=== PATIENT | male | born 1935 | race Caucasian/White ===

== ENCOUNTER 2016-10-06 11:25 | Emergency (ER) | payer OTHER ==
[~2016-10-06] VITALS: Ht 157.5 cm; Wt 77.2 kg
[~2016-10-06 11:25] MED LIST: ADVAIR 250/501 DISK IH; ADVAIR HFA120 INHALA IH; ALBUTEROL SULF8.5 GM IH; ALDACTONE25 MG PO; AMLODIPINE BESY10 MG PO; AMLODIPINE BESYL5 MG PO; ARANESP25 MCG/0.4 SC; ASPIR 8181 M1 PO; ASPIR-TRIN325 M1 PO; Advair HFA 115/21 IH; Aldactone PO; B-121000 MC2 PO; BENZONATATE100 MG PO; CARDIZEM CD,CA240 MG PO; CEFTIN500 MG PO; CEFUROXIME500 MG PO; CENTRUM SILV1 TABLET PO; CENTRUM SILVER1 EAC3 PO; CENTRUM TABLET1 EACH PO; CIPRO500 MG PO; CIPROFLOXACIN500 M1 PO; CLARITIN,ALAVAR10 MG PO; COLACE100 MG PO; CYANOCOBALAM1000 MCG PO; CYCLOBENZAPRINE5 MG PO; DIGOXIN125 MCG PO; DITROPAN XL5 MG PO; DOCUSATE SODIU100 MG PO; DOXYCYCLINE HY100 M3 PO; DUONEB 2.5-0.5 M3 ML AEROSOL; ENABLEX7.5 MG PO; EPOGEN,PRO3000 UNITS SC; FENOFIBRATE145 M1 PO; FISH OIL 1,0001 EAC7 PO; FISH OIL CONC1 EACH PO; FISH OIL300 MG PO; FLOMAX0.4 M1 PO; FUROSEMIDE40 MG PO; GLIMEPIRIDE2 MG PO; HUMALOG MI100 UNIT/5 SC; HUMALOG100 UNIT/1 SC; HYDROCHLOROTHIA25 MG PO; HYDROCODON-ACE1 EAC7 PO; JANUVIA100 MG PO; KETOCONAZOLE120 ML TP; LASIX40 MG PO; LEVAQUIN500 MG PO; LEVAQUIN750 MG PO; LIDOCAINE700 MG TD; LISINOPRIL40 MG PO; LO-DOSE ASPIRIN81 M2 PO; LORATADINE10 M2 PO; LORTAB 5-325 M1 EACH PO; Lasix PO; Lopressor PO; METHYLDOPA500 MG PO; METOPROLOL SUC100 MG PO; METOPROLOL SUCC50 MG PO; MONTELUKAST SOD10 MG PO; NOVOLOG MI100 UNIT/4 SC; NOVOLOG MI100 UNIT/M SC; OXYBUTYNIN CHLO10 MG PO; OXYCONTIN10 MG PO; Omega III EPA + DHA PO; PLAVIX75 MG PO; PREDNISONE10 MG PO; PRINIVIL20 MG PO; PROAIR HFA8.5 GM IH; PROCRIT2000 UNIT1 SC; PROTONIX40 M1 PO; PROTONIX40 MG PO; SILVADENE,SSD,T50 GM TP; SIMVASTATIN10 MG PO; SIMVASTATIN40 M1 PO; SIMVASTATIN40 MG PO; SINGULAIR10 MG PO; SPIRIVA1 INHALATI IH; ST. JOSEPH ASPI81 MG PO; Singulair PO; Starlix PO; TAMSULOSIN HCL0.4 MG PO; THERAGRAN1 TABLET PO; TOPROL XL50 MG PO; TOVIAZ4 MG PO; TRAMADOL HCL50 MG PO; Theragran-M,Centrum, PO; VENTOLIN HFA18 GM IH; VICODIN 5-3001 EACH PO; Vitamin B-12 PO; WELCHOL3.75 GM PO; ZESTRIL,PRINIVI40 MG PO; ZESTRIL40 MG PO; ZETIA10 MG PO; ZOCOR40 MG PO; Zestril,Prinivil PO; Zocor PO
[2016-10-06 12:07] LABS: HEMATOCRIT 30.3 % (38.0-50.0); MCH 29.1 PG (29.0-34.0); MCHC 30.4 G/DL (30.0-36.0); MCV 95.9 FL (86-99); MEAN PLAT.VOLUME 9.9 uM^3 (9.0-12.4); PLATELET COUNT 247 K/uL (156-360); RBC DIS.WIDTH-CV 19.7 % (11.8-14.6); RBC DIS.WIDTH-SD 64.6 % (39-53); RED BLOOD COUNT 3.16 M/uL (4.00-5.50); WHITE BLOOD COUNT 7.8 K/uL (4.1-10.2)
[2016-10-06 12:09] LABS: EOSINOPHIL (%) 0.5 % (0-5); IMMATURE GRANULOCYTE (%) 3.8 % (0.0-0.7); LYMPHOCYTE COUNT 1.2 K/uL (1.0-2.8); MONOCYTE (%) 10.9 % (3-12); MONOCYTE COUNT 0.9 K/uL (0-0.8); NEUTROPHIL (%) 68.9 % (45-76); NEUTROPHIL COUNT 5.4 K/uL (1.8-6.4)
[2016-10-06 12:16] LABS: CHLORIDE 100 mEq/L (99-109); POTASSIUM 4.2 mEq/L (3.7-5.4); SODIUM 137 mEq/L (136-147)
[2016-10-06 12:18] LABS: GLUCOSE 114 mg/dL (70-99)
[2016-10-06 12:19] LABS: ANION GAP 12 MEQ/L (2-14)
[2016-10-06 12:20] LABS: TOTAL BILIRUBIN 0.2 mg/dL (0.0-1.0)
[2016-10-06 12:22] LABS: ALKALINE PHOSPHATASE 41 IU/L (3-129); GFR ESTIMATE (CALCULATED) 10 mL/min/
[2016-10-06 12:23] LABS: UREA NITROGEN (BUN) 33 mg/dL (9-23)
[2016-10-06 12:27] LABS: TROP-I INTERPRETATION NEGATIVE; TROPONIN-I 0.04 ng/mL (0.0-0.30)
[2016-10-06 13:00] LABS: HEMATOLOGY COMMENT 1 SMEAR COMPATIBLE; USER ID CL
[2016-10-06 16:04] VITALS: BP 127/61
== END 2016-10-06 16:07 | disposition home or self-care (01) ==
LOC: EME → EDBD 11:25 → EME 16:07
PROVIDERS: Emergency Medicine
DX: L89.309 Pressure ulcer of unspecified buttock, unspecified stage (principal); R19.7 Diarrhea, unspecified; I12.0 Hypertensive chronic kidney disease with stage 5 chronic kidney disease or end stage renal disease; N18.6 End stage renal disease; E11.9 Type 2 diabetes mellitus without complications; J44.9 Chronic obstructive pulmonary disease, unspecified; E78.5 Hyperlipidemia, unspecified; Z85.51 Personal history of malignant neoplasm of bladder; Z79.4 Long term (current) use of insulin; Z87.891 Personal history of nicotine dependence; Z95.1 Presence of aortocoronary bypass graft; Z99.2 Dependence on renal dialysis
CPT/HCPCS: 71020; 80053; 81003; 84484; 85025; 87493; 87506; 93005; 99281; 99285

== ENCOUNTER 2016-10-17 12:13 | Day surgery (SDC) | payer OTHER ==
[~2016-10-17] VITALS: Ht 157.5 cm; Wt 77.6 kg
[~2016-10-17 12:13] MED LIST changes: +BENADRYL25 MG PO; +DILTIAZEM 24HR360 M1 PO
[2016-10-17 13:03] VITALS: BP 129/60
[2016-10-17 13:18] LABS: HEMATOCRIT 33.5 % (38.0-50.0); MCH 30.7 PG (29.0-34.0); MCV 98.8 FL (86-99); MEAN PLAT.VOLUME 10.5 uM^3 (9.0-12.4); PLATELET COUNT 173 K/uL (156-360); RBC DIS.WIDTH-CV 21.6 % (11.8-14.6); RBC DIS.WIDTH-SD 74.5 % (39-53); RED BLOOD COUNT 3.39 M/uL (4.00-5.50); WHITE BLOOD COUNT 8.2 K/uL (4.1-10.2)
[2016-10-17 13:41] LABS: POINT-OF-CARE METER ID UU14174212
[2016-10-17 13:46] LABS: ANION GAP 8 MEQ/L (2-14); CHLORIDE 106 MEQ/L (99-109); POTASSIUM 5.2 MEQ/L (3.7-5.4); SAMPLE HEMOLYSIS CHECK 0; SAMPLE ICTERIC CHECK 0; SAMPLE LIPEMIA CHECK 0; SODIUM 139 MEQ/L (136-147)
[2016-10-17 13:51] LABS: GFR ESTIMATE (CALCULATED) 10 mL/min/; GLUCOSE 47 mg/dL (70-99); UREA NITROGEN (BUN) 48 mg/dL (9-23)
[2016-10-17 14:11] LABS: METH RESISTANT S AUREUS PCR NEGATIVE (NEGATIVE)
[2016-10-17 14:27] LABS: PROBE CHECK PASS; SPECIMEN PROCESSING CONTROL PASS
[2016-10-17 15:33] LABS: POINT-OF-CARE METER ID UU14174212
[2016-10-17 16:17] LABS: POINT-OF-CARE METER ID UU14174212
[2016-10-17 17:48] LABS: POINT-OF-CARE METER ID UU13113675
[2016-10-17 18:20] VITALS: BP 121/59
[2016-10-17 19:10] VITALS: BP 126/59
[2016-10-17 19:33] LABS: POINT-OF-CARE METER ID UU14174212; POINT-OF-CARE USER ID AHSRSCSLC11
[2016-10-20 11:50] LABS: POINT-OF-CARE METER ID UU14174212
== END 2016-10-17 19:30 | disposition home or self-care (01) ==
LOC: SDC 12:13
PROVIDERS: Surgery
PROC: 03170ZD Bypass Right Brachial Artery to Upper Arm Vein, Open Approach (ICD-10-PCS; principal; 2016-10-17)
DX: I12.0 Hypertensive chronic kidney disease with stage 5 chronic kidney disease or end stage renal disease (principal); E11.22 Type 2 diabetes mellitus with diabetic chronic kidney disease; N18.6 End stage renal disease; J44.9 Chronic obstructive pulmonary disease, unspecified; Z99.81 Dependence on supplemental oxygen; Z87.891 Personal history of nicotine dependence
CPT/HCPCS: 80048; 82948; 85027; 87641; J0690; J1644; J2720

== ENCOUNTER 2016-11-09 13:11 | Inpatient (IN) | payer OTHER ==
[~2016-11-09] VITALS: Ht 160 cm; Wt 81.8 kg
[2016-11-09 14:18] LABS: EOSINOPHIL COUNT 0.1 K/uL (0-0.3); HEMATOCRIT 34.5 % (38.0-50.0); IMMATURE GRANULOCYTE (%) 0.7 % (0.0-0.7); IMMATURE GRANULOCYTE COUNT 0.1 K/uL; INSTRUMENT ABS NEUTROPHIL CT 5.4 K/uL; LYMPHOCYTE COUNT 1.1 K/uL (1.0-2.8); MCH 30.1 PG (29.0-34.0); MCHC 30.1 G/DL (30.0-36.0); MEAN PLAT.VOLUME 10.7 uM^3 (9.0-12.4); MONOCYTE (%) 13.6 % (3-12); NEUTROPHIL (%) 70.1 % (45-76); NEUTROPHIL COUNT 5.4 K/uL (1.8-6.4); PLATELET COUNT 168 K/uL (156-360); RBC DIS.WIDTH-CV 19.5 % (11.8-14.6); RBC DIS.WIDTH-SD 70.8 % (39-53); RED BLOOD COUNT 3.45 M/uL (4.00-5.50); WHITE BLOOD COUNT 7.7 K/uL (4.1-10.2)
[2016-11-09 14:35] LABS: INTER. NORMALIZED RATIO 1.1; PROTHROMBIN TIME 11.6 (9.2-11.2)
[2016-11-09 14:36] LABS: CHLORIDE 101 mEq/L (99-109); SODIUM 136 mEq/L (136-147)
[2016-11-09 14:38] LABS: GLUCOSE 64 mg/dL (70-99)
[2016-11-09 14:39] LABS: ANION GAP 9 MEQ/L (2-14)
[2016-11-09 14:42] LABS: GFR ESTIMATE (CALCULATED) 10 mL/min/
[2016-11-09 14:43] LABS: UREA NITROGEN (BUN) 82 mg/dL (9-23)
[2016-11-09 14:45] LABS: TROP-I INTERPRETATION NEGATIVE; TROPONIN-I 0.02 ng/mL (0.0-0.30)
[2016-11-09 14:50] LABS: DIGOXIN < 0.3 ng/mL (0.8-2.0)
[2016-11-09 14:57] LABS: SAMPLE HEMOLYSIS CHECK 0; SAMPLE ICTERIC CHECK 0; SAMPLE LIPEMIA CHECK 0
[2016-11-09 15:03] LABS: HDL CHOLESTEROL 34 MG/DL (Desirable>=40); LDL CHOLESTEROL 36 mg/dL (Desirable<100); NON-HDL CHOLESTEROL 54 mg/dL (Desirable<160); TOTAL CHOLESTEROL 88 mg/dL (Desirable<200); TRIGLYCERIDES 89 MG/DL (Normal: <150)
[2016-11-09] MEDS ORDERED: [UNRECOGNIZED DRUG - OTHER] PO (15:48)
[2016-11-09] MEDS ORDERED: METHYLDOPA250 MG PO (15:48)
[2016-11-09] MEDS ORDERED: CALCIUM ACETAT667 MG PO (15:48)
[2016-11-09] MEDS ORDERED: ZYRTEC10 M3 PO (15:49)
[2016-11-09] MEDS ORDERED: BACLOFEN10 MG PO (15:49)
[2016-11-09 16:37] LABS: CHLORIDE 103 mEq/L (99-109); POTASSIUM 5.7 mEq/L (3.7-5.4); SODIUM 134 mEq/L (136-147)
[2016-11-09 16:39] LABS: GLUCOSE 63 mg/dL (70-99)
[2016-11-09 16:40] LABS: ANION GAP 13 MEQ/L (2-14)
[2016-11-09 16:43] LABS: GFR ESTIMATE (CALCULATED) 10 mL/min/
[2016-11-09 16:44] LABS: UREA NITROGEN (BUN) 82 mg/dL (9-23)
[2016-11-09 18:39] LABS: POINT-OF-CARE METER ID UU14188625
[2016-11-09 19:44] VITALS: BP 103/51
[2016-11-09 20:18] LABS: BASE EXCESS -0.9 mEq/L (-3 to +3); BICARBONATE 27.4 mEq/L (22-26); CARBOXY HGB 2.5 % (0-5); METHEMOGLOBIN 1.4 % (0-1.5)
[2016-11-09 20:19] LABS: COMMENTS - BLOOD GASES A+C+; DEVICE NC; O2 FLOW 2 L/MIN; PCO2 64 mm Hg (35-45); PO2 62 mm Hg (80-100); SITE LR; pH 7.24 (7.35-7.45)
[2016-11-09 20:25] LABS: ANION GAP 10 MEQ/L (2-14); CHLORIDE 99 MEQ/L (99-109); GFR ESTIMATE (CALCULATED) 10 mL/min/; GLUCOSE 119 mg/dL (70-99); POTASSIUM 5.5 MEQ/L (3.7-5.4); SAMPLE HEMOLYSIS CHECK 0; SAMPLE ICTERIC CHECK 0; SAMPLE LIPEMIA CHECK 0; SODIUM 136 MEQ/L (136-147); UREA NITROGEN (BUN) 82 mg/dL (9-23)
[2016-11-09 23:27] VITALS: BP 100/50
[2016-11-10 04:44] VITALS: BP 112/54
[2016-11-10 06:44] LABS: Estimated Average Glucose 94 mg/dL (70-123)
[2016-11-10 07:05] LABS: HEMOGLOBIN A1c (GLYCOHEMOGLOB) 4.9 % HGB (Below 5.7)
[2016-11-10 07:31] LABS: HEMATOCRIT 35.4 % (38.0-50.0); MCH 30.2 PG (29.0-34.0); MCHC 29.9 G/DL (30.0-36.0); MCV 100.9 FL (86-99); MEAN PLAT.VOLUME 10.9 uM^3 (9.0-12.4); PLATELET COUNT 182 K/uL (156-360); RBC DIS.WIDTH-CV 19.6 % (11.8-14.6); RBC DIS.WIDTH-SD 71.5 % (39-53); RED BLOOD COUNT 3.51 M/uL (4.00-5.50)
[2016-11-10 07:43] LABS: ANION GAP 14 MEQ/L (2-14); CHLORIDE 98 MEQ/L (99-109); GFR ESTIMATE (CALCULATED) 9 mL/min/; POTASSIUM 5.5 MEQ/L (3.7-5.4); SAMPLE HEMOLYSIS CHECK 0; SAMPLE ICTERIC CHECK 0; SAMPLE LIPEMIA CHECK 0; SODIUM 137 MEQ/L (136-147); UREA NITROGEN (BUN) 88 mg/dL (9-23)
[2016-11-10 07:49] VITALS: BP 116/64
[2016-11-10 08:05] LABS: GLUCOSE 236 mg/dL (70-99)
[2016-11-10 12:02] VITALS: BP 134/70
[2016-11-10 18:30] VITALS: BP 154/78
[2016-11-10 19:34] LABS: POINT-OF-CARE USER ID AHSUCEG
[2016-11-11 00:15] VITALS: BP 134/64
[2016-11-11 03:36] VITALS: BP 125/72
[2016-11-11 08:00] VITALS: BP 137/69
[2016-11-11 08:16] LABS: VANCOMYCIN, TROUGH 17.2 MCG/ML (10-20)
[2016-11-11 09:28] LABS: HEMATOCRIT 32.9 % (38.0-50.0); MCH 30.6 PG (29.0-34.0); MCHC 30.7 G/DL (30.0-36.0); MCV 99.7 FL (86-99); MEAN PLAT.VOLUME 11.2 uM^3 (9.0-12.4); NRBC (%) 1.2 /100 WBC (0-0); PLATELET COUNT 213 K/uL (156-360); RBC DIS.WIDTH-CV 20.3 % (11.8-14.6); RBC DIS.WIDTH-SD 72.9 % (39-53)
[2016-11-11 09:30] LABS: WHITE BLOOD COUNT 5.7 K/uL (4.1-10.2)
[2016-11-11 09:35] LABS: ANION GAP 15 MEQ/L (2-14); CHLORIDE 94 MEQ/L (99-109); GLUCOSE 253 mg/dL (70-99); SODIUM 136 MEQ/L (136-147); UREA NITROGEN (BUN) 50 mg/dL (9-23)
[2016-11-11 09:39] LABS: GFR ESTIMATE (CALCULATED) 14 mL/min/; POTASSIUM 4.2 MEQ/L (3.7-5.4)
[2016-11-11 12:00] VITALS: BP 132/70
[2016-11-11 15:17] VITALS: BP 132/78
[2016-11-11 20:14] VITALS: BP 147/70
[2016-11-11 23:04] LABS: POINT-OF-CARE METER ID UU14188625
[2016-11-12 00:09] VITALS: BP 135/70
[2016-11-12 04:37] VITALS: BP 127/67
[2016-11-12 07:45] VITALS: BP 134/76
[2016-11-12 07:53] LABS: POINT-OF-CARE METER ID UU14188625
[2016-11-12 10:13] LABS: HEMATOCRIT 36.1 % (38.0-50.0); MCH 29.8 PG (29.0-34.0); MCHC 29.9 G/DL (30.0-36.0); MCV 99.4 FL (86-99); MEAN PLAT.VOLUME 11.2 uM^3 (9.0-12.4); NRBC (%) 1.2 /100 WBC (0-0); PLATELET COUNT 237 K/uL (156-360); RBC DIS.WIDTH-CV 20.4 % (11.8-14.6); RED BLOOD COUNT 3.63 M/uL (4.00-5.50)
[2016-11-12 10:14] LABS: WHITE BLOOD COUNT 11.1 K/uL (4.1-10.2)
[2016-11-12 10:18] LABS: ANION GAP 14 MEQ/L (2-14); CHLORIDE 97 MEQ/L (99-109); GFR ESTIMATE (CALCULATED) 10 mL/min/; GLUCOSE 235 mg/dL (70-99); POTASSIUM 3.8 MEQ/L (3.7-5.4); SAMPLE HEMOLYSIS CHECK 0; SAMPLE ICTERIC CHECK 0; SAMPLE LIPEMIA CHECK 0; SODIUM 140 MEQ/L (136-147); UREA NITROGEN (BUN) 75 mg/dL (9-23)
[2016-11-12 10:21] LABS: EOSINOPHIL (%) 0.1 % (0-5); IMMATURE GRANULOCYTE (%) 1.1 % (0.0-0.7); IMMATURE GRANULOCYTE COUNT 0.1 K/uL; INSTRUMENT ABS NEUTROPHIL CT 8.4 K/uL; LYMPHOCYTE COUNT 1.4 K/uL (1.0-2.8); MONOCYTE (%) 10.8 % (3-12); MONOCYTE COUNT 1.2 K/uL (0-0.8); NEUTROPHIL (%) 75.3 % (45-76); NEUTROPHIL COUNT 8.4 K/uL (1.8-6.4)
[2016-11-12 13:18] LABS: POINT-OF-CARE METER ID UU14188625
[2016-11-12 15:50] VITALS: BP 111/55
[2016-11-12 16:40] LABS: POINT-OF-CARE METER ID UU14188625
[2016-11-12 20:02] VITALS: BP 122/63
[2016-11-12 23:42] VITALS: BP 127/65
[2016-11-13 03:33] VITALS: BP 116/65
[2016-11-13 08:17] VITALS: BP 116/67
[2016-11-13 11:05] VITALS: BP 135/80
[2016-11-13 11:13] VITALS: BP 128/65
[2016-11-13] MEDS ORDERED: LIDOCAINE700 MG TD (14:32)
[2016-11-13] MEDS ORDERED: NOVOLOG PE100 UNITS/ SC (14:49)
[2016-11-13 15:22] VITALS: BP 126/66
[2016-11-13] MEDS ORDERED: TOPROL XL25 MG PO (15:37)
[2016-11-14 08:29] LABS: POINT-OF-CARE METER ID UU14188625
== END 2016-11-13 17:00 | DRG 682 ==
LOC: EME 13:11 → 5SOUTH 15:32 → EDOF 15:32 → 5SOUTH 16:53
PROVIDERS: Emergency Medicine; Hospitalist; Internal Medicine; Internal Medicine Nephrology; Internal Medicine Pulmonary Disease; Nurse Practitioner Adult Health
PROC: 5A1D60Z (ICD-10-PCS; principal; 2016-11-10)
DX: N18.6 End stage renal disease (principal); E87.5 Hyperkalemia; I13.2 Hypertensive heart and chronic kidney disease with heart failure and with stage 5 chronic kidney disease, or end stage renal disease; I50.30 Unspecified diastolic (congestive) heart failure; E11.22 Type 2 diabetes mellitus with diabetic chronic kidney disease; Z99.2 Dependence on renal dialysis; G93.49 Other encephalopathy; J96.11 Chronic respiratory failure with hypoxia; J44.9 Chronic obstructive pulmonary disease, unspecified; E87.2 Acidosis; I95.2 Hypotension due to drugs; T46.5X5A Adverse effect of other antihypertensive drugs, initial encounter; C67.9 Malignant neoplasm of bladder, unspecified; I45.2 Bifascicular block; I48.92 Unspecified atrial flutter; I48.91 Unspecified atrial fibrillation; E11.649 Type 2 diabetes mellitus with hypoglycemia without coma; Z99.81 Dependence on supplemental oxygen; I25.10 Atherosclerotic heart disease of native coronary artery without angina pectoris; Z95.1 Presence of aortocoronary bypass graft; R29.6 Repeated falls; E78.5 Hyperlipidemia, unspecified; E66.9 Obesity, unspecified; Z68.31 Body mass index [BMI] 31.0-31.9, adult; N47.1 Phimosis; M17.12 Unilateral primary osteoarthritis, left knee; M85.862 Other specified disorders of bone density and structure, left lower leg; Z79.4 Long term (current) use of insulin; Z87.891 Personal history of nicotine dependence; Z98.890 Other specified postprocedural states
CPT/HCPCS: 36600; 70450; 71020; 73560; 74176; 80048; 80048 91; 80061; 80069; 80162; 80202; 81003; 82803; 82948; 83036; 84484; 84550; 85025; 85027; 85610; 85730; 87040; 93005; 94010; 94640; 94640 76; 94760; 94799; 97530 GO; 99202; 99281; 99285; J1644; J1815; J1940; J2543; J2920; J3370; J7050; P9047

== ENCOUNTER 2016-12-19 20:13 | Inpatient (IN) | payer OTHER ==
[~2016-12-19] VITALS: Ht 157.5 cm; Wt 63.2 kg
[~2016-12-19 20:13] MED LIST changes: +BACLOFEN10 MG PO; +CALCIUM ACETAT667 MG PO; +METHYLDOPA250 MG PO; +NOVOLOG PE100 UNITS/ SC; +TOPROL XL25 MG PO; +ZYRTEC10 M3 PO; +[UNRECOGNIZED DRUG - OTHER] PO
[2016-12-19 21:51] LABS: HEMATOCRIT 34.8 % (38.0-50.0); MCH 30.3 PG (29.0-34.0); MCHC 30.7 G/DL (30.0-36.0); MEAN PLAT.VOLUME 10.8 uM^3 (9.0-12.4); RBC DIS.WIDTH-CV 18.6 % (11.8-14.6); RBC DIS.WIDTH-SD 67.8 % (39-53); RED BLOOD COUNT 3.53 M/uL (4.00-5.50); WHITE BLOOD COUNT 7.6 K/uL (4.1-10.2)
[2016-12-19 21:54] LABS: MCV 98.6 FL (86-99); PLATELET COUNT 119 K/uL (156-360)
[2016-12-19 22:01] LABS: CHLORIDE 99 mEq/L (99-109); POTASSIUM 4.5 mEq/L (3.7-5.4); SODIUM 136 mEq/L (136-147)
[2016-12-19 22:03] LABS: GLUCOSE 139 mg/dL (70-99)
[2016-12-19 22:04] LABS: ANION GAP 8 MEQ/L (2-14)
[2016-12-19 22:05] LABS: TOTAL BILIRUBIN 0.3 mg/dL (0.0-1.0)
[2016-12-19 22:07] LABS: ALKALINE PHOSPHATASE 51 IU/L (3-129); GFR ESTIMATE (CALCULATED) 25 mL/min/
[2016-12-19 22:08] LABS: UREA NITROGEN (BUN) 24 mg/dL (9-23)
[2016-12-19 22:15] LABS: TROP-I INTERPRETATION NEGATIVE; TROPONIN-I 0.03 ng/mL (0.0-0.30)
[2016-12-20] VITALS (30 sets, daily range): BP systolic 87–127; BP diastolic 39–68
[2016-12-20 04:51] LABS: EOSINOPHIL (%) 0.1 % (0-5); HEMATOCRIT 38.1 % (38.0-50.0); IMMATURE GRANULOCYTE (%) 0.7 % (0.0-0.7); IMMATURE GRANULOCYTE COUNT 0.1 K/uL; INSTRUMENT ABS NEUTROPHIL CT 6.4 K/uL; LYMPHOCYTE COUNT 0.5 K/uL (1.0-2.8); MCH 29.7 PG (29.0-34.0); MCHC 29.7 G/DL (30.0-36.0); MEAN PLAT.VOLUME 10.8 uM^3 (9.0-12.4); MONOCYTE (%) 2.1 % (3-12); MONOCYTE COUNT 0.2 K/uL (0-0.8); NEUTROPHIL (%) 89.7 % (45-76); NEUTROPHIL COUNT 6.4 K/uL (1.8-6.4); PLATELET COUNT 129 K/uL (156-360); RBC DIS.WIDTH-CV 18.8 % (11.8-14.6); RBC DIS.WIDTH-SD 70.3 % (39-53); RED BLOOD COUNT 3.81 M/uL (4.00-5.50); WHITE BLOOD COUNT 7.1 K/uL (4.1-10.2)
[2016-12-20 05:01] LABS: CHLORIDE 100 mEq/L (99-109); SODIUM 138 mEq/L (136-147)
[2016-12-20 05:03] LABS: GLUCOSE 138 mg/dL (70-99)
[2016-12-20 05:04] LABS: ANION GAP 10 MEQ/L (2-14)
[2016-12-20 05:05] LABS: TOTAL BILIRUBIN 0.3 mg/dL (0.0-1.0)
[2016-12-20 05:06] LABS: ALKALINE PHOSPHATASE 45 IU/L (3-129)
[2016-12-20 05:07] LABS: GFR ESTIMATE (CALCULATED) 21 mL/min/
[2016-12-20 05:08] LABS: UREA NITROGEN (BUN) 29 mg/dL (9-23)
[2016-12-20 05:10] LABS: TROP-I INTERPRETATION NEGATIVE; TROPONIN-I 0.03 ng/mL (0.0-0.30)
[2016-12-20 05:41] LABS: POINT-OF-CARE METER ID UU13113781
[2016-12-20 07:47] LABS: BICARBONATE 31.7 mEq/L (22-26); CARBOXY HGB 2.1 % (0-5); METHEMOGLOBIN 1.8 % (0-1.5)
[2016-12-20 07:48] LABS: PCO2 87 mm Hg (35-45); PO2 79 mm Hg (80-100); pH 7.17 (7.35-7.45)
[2016-12-20 07:49] LABS: DEVICE NC; O2 FLOW 2 L/MIN; SITE LR
[2016-12-20 07:50] LABS: COMMENTS - BLOOD GASES A+C+; TOTAL RESP RATE 17 resp/min
[2016-12-20 09:42] LABS: METH RESISTANT S AUREUS PCR NEGATIVE (NEGATIVE); PROBE CHECK PASS; SPECIMEN PROCESSING CONTROL PASS
[2016-12-20 10:18] LABS: BASE EXCESS 2.8 mEq/L (-3 to +3); BICARBONATE 27.9 mEq/L (22-26); CARBOXY HGB 1.7 % (0-5); METHEMOGLOBIN 1.2 % (0-1.5); PO2 67 mm Hg (80-100)
[2016-12-20 10:20] LABS: COMMENTS - BLOOD GASES NAC+; DEVICE 980 VENT; FI02 30 %; MECHANICAL RATE 25 resp/min; MODE A/C; PCO2 44 mm Hg (35-45); SITE RR; TOTAL RESP RATE 25 resp/min; pH 7.41 (7.35-7.45)
[2016-12-20 10:21] LABS: PEEP 5 CM/H20; TIDAL VOLUME 400 ML
[2016-12-21] VITALS (24 sets, daily range): BP systolic 93–126; BP diastolic 43–68
[2016-12-21] MEDS ORDERED: METOPROLOL SUCC50 MG PO (21:00)
[2016-12-21] MEDS ORDERED: METHYLDOPA250 MG PO (21:00)
[2016-12-21] MEDS ORDERED: RENA-VITE RX T1 EACH PO (21:03)
[2016-12-21] MEDS ORDERED: METOPROLOL TART50 MG PO (21:03)
[2016-12-21] MEDS ORDERED: CIPRO500 MG PO (21:04)
[2016-12-21] MEDS ORDERED: VITAMIN D2000 UNI1 PO (21:04)
[2016-12-21] MEDS ORDERED: HUMALOG100 UNIT/2 SC ×2 (21:08→21:09)
[2016-12-21] MEDS ORDERED: CYCLOBENZAPRINE10 MG PO (21:08)
[2016-12-21] MEDS ORDERED: DUONEB 2.5-0.5 M3 ML AEROSOL (21:09)
[2016-12-22] VITALS (24 sets, daily range): BP systolic 96–135; BP diastolic 53–80
[2016-12-22 06:27] LABS: ANION GAP 11 MEQ/L (2-14); CHLORIDE 99 MEQ/L (99-109); GLUCOSE 194 mg/dL (70-99); POTASSIUM 5.4 MEQ/L (3.7-5.4); SAMPLE HEMOLYSIS CHECK 0; SAMPLE ICTERIC CHECK 0; SAMPLE LIPEMIA CHECK 0; SODIUM 133 MEQ/L (136-147)
[2016-12-22 06:27] LABS: EOSINOPHIL (%) 0 % (0-5); HEMATOCRIT 35.7 % (38.0-50.0); IMMATURE GRANULOCYTE (%) 1.3 % (0.0-0.7); IMMATURE GRANULOCYTE COUNT 0.1 K/uL; LYMPHOCYTE COUNT 0.6 K/uL (1.0-2.8); MCH 29.7 PG (29.0-34.0); MCHC 30.8 G/DL (30.0-36.0); MCV 96.5 FL (86-99); MEAN PLAT.VOLUME 11.4 uM^3 (9.0-12.4); MONOCYTE (%) 6.6 % (3-12); MONOCYTE COUNT 0.4 K/uL (0-0.8); NEUTROPHIL (%) 82.5 % (45-76); NRBC (%) 0.3 /100 WBC (0-0); PLATELET COUNT 152 K/uL (156-360); RBC DIS.WIDTH-CV 18.9 % (11.8-14.6); RBC DIS.WIDTH-SD 66.9 % (39-53)
[2016-12-22 06:56] LABS: GFR ESTIMATE (CALCULATED) 12 mL/min/
[2016-12-22 06:58] LABS: UREA NITROGEN (BUN) 79 mg/dL (9-23)
[2016-12-22 12:35] LABS: POINT-OF-CARE METER ID UU13113731
[2016-12-22 13:02] LABS: HBSG INDEX 0.23
[2016-12-22 17:28] LABS: POINT-OF-CARE METER ID UU13113731
[2016-12-23] VITALS (12 sets, daily range): BP systolic 103–121; BP diastolic 52–70
[2016-12-23 06:01] LABS: POINT-OF-CARE METER ID UU14174217
[2016-12-23 06:19] LABS: EOSINOPHIL (%) 0 % (0-5); HEMATOCRIT 36.9 % (38.0-50.0); IMMATURE GRANULOCYTE (%) 1.7 % (0.0-0.7); IMMATURE GRANULOCYTE COUNT 0.1 K/uL; INSTRUMENT ABS NEUTROPHIL CT 4.1 K/uL; LYMPHOCYTE COUNT 0.5 K/uL (1.0-2.8); MCH 29.8 PG (29.0-34.0); MCHC 30.9 G/DL (30.0-36.0); MCV 96.3 FL (86-99); MEAN PLAT.VOLUME 11.2 uM^3 (9.0-12.4); MONOCYTE (%) 10.3 % (3-12); MONOCYTE COUNT 0.6 K/uL (0-0.8); NEUTROPHIL (%) 77.8 % (45-76); NEUTROPHIL COUNT 4.1 K/uL (1.8-6.4); NRBC (%) 1.5 /100 WBC (0-0); PLATELET COUNT 170 K/uL (156-360); RBC DIS.WIDTH-SD 66.1 % (39-53); RED BLOOD COUNT 3.83 M/uL (4.00-5.50); WHITE BLOOD COUNT 5.3 K/uL (4.1-10.2)
[2016-12-23 06:40] LABS: ANION GAP 9 MEQ/L (2-14); CHLORIDE 97 MEQ/L (99-109); GFR ESTIMATE (CALCULATED) 18 mL/min/; GLUCOSE 182 mg/dL (70-99); POTASSIUM 4.8 MEQ/L (3.7-5.4); SAMPLE HEMOLYSIS CHECK 0; SAMPLE ICTERIC CHECK 0; SAMPLE LIPEMIA CHECK 0; SODIUM 136 MEQ/L (136-147); UREA NITROGEN (BUN) 48 mg/dL (9-23)
[2016-12-23 12:43] LABS: POINT-OF-CARE METER ID UU14174217
[2016-12-23 18:10] LABS: POINT-OF-CARE METER ID UU14174217
[2016-12-23 23:08] LABS: POINT-OF-CARE METER ID UU13113731
[2016-12-24] VITALS (7 sets, daily range): BP systolic 105–120; BP diastolic 58–66
[2016-12-24 06:50] LABS: EOSINOPHIL (%) 0 % (0-5); HEMATOCRIT 38.5 % (38.0-50.0); IMMATURE GRANULOCYTE (%) 2.6 % (0.0-0.7); IMMATURE GRANULOCYTE COUNT 0.1 K/uL; INSTRUMENT ABS NEUTROPHIL CT 3.4 K/uL; LYMPHOCYTE COUNT 0.5 K/uL (1.0-2.8); MCH 29.7 PG (29.0-34.0); MCHC 30.4 G/DL (30.0-36.0); MCV 97.7 FL (86-99); MEAN PLAT.VOLUME 10.3 uM^3 (9.0-12.4); MONOCYTE (%) 11.5 % (3-12); MONOCYTE COUNT 0.5 K/uL (0-0.8); NEUTROPHIL COUNT 3.4 K/uL (1.8-6.4); NRBC (%) 4.1 /100 WBC (0-0); PLATELET COUNT 167 K/uL (156-360); RBC DIS.WIDTH-CV 19.7 % (11.8-14.6); RBC DIS.WIDTH-SD 67.1 % (39-53); RED BLOOD COUNT 3.94 M/uL (4.00-5.50); WHITE BLOOD COUNT 4.6 K/uL (4.1-10.2)
[2016-12-24 07:21] LABS: ANION GAP 10 MEQ/L (2-14); CHLORIDE 97 MEQ/L (99-109); GFR ESTIMATE (CALCULATED) 14 mL/min/; GLUCOSE 246 mg/dL (70-99); POTASSIUM 5.4 MEQ/L (3.7-5.4); SAMPLE HEMOLYSIS CHECK 0; SAMPLE ICTERIC CHECK 0; SAMPLE LIPEMIA CHECK 0; SODIUM 135 MEQ/L (136-147); UREA NITROGEN (BUN) 72 mg/dL (9-23)
[2016-12-24 13:32] LABS: POINT-OF-CARE METER ID UU13113731
[2016-12-24 18:25] LABS: POINT-OF-CARE METER ID UU14174217
[2016-12-24 22:59] LABS: POINT-OF-CARE METER ID UU14174217
[2016-12-25] VITALS: BP 113/60
[2016-12-25 04:00] VITALS: BP 108/61
[2016-12-25 06:15] LABS: ANION GAP 9 MEQ/L (2-14); CHLORIDE 100 MEQ/L (99-109); GFR ESTIMATE (CALCULATED) 20 mL/min/; GLUCOSE 181 mg/dL (70-99); POTASSIUM 5.4 MEQ/L (3.7-5.4); SAMPLE HEMOLYSIS CHECK 0; SAMPLE ICTERIC CHECK 0; SAMPLE LIPEMIA CHECK 0; SODIUM 134 MEQ/L (136-147); UREA NITROGEN (BUN) 53 mg/dL (9-23)
[2016-12-25 06:25] LABS: EOSINOPHIL (%) 0 % (0-5); HEMATOCRIT 40.3 % (38.0-50.0); IMMATURE GRANULOCYTE (%) 2.7 % (0.0-0.7); IMMATURE GRANULOCYTE COUNT 0.2 K/uL; LYMPHOCYTE COUNT 0.7 K/uL (1.0-2.8); MCH 29.7 PG (29.0-34.0); MCHC 30.8 G/DL (30.0-36.0); MCV 96.4 FL (86-99); MONOCYTE (%) 10.4 % (3-12); MONOCYTE COUNT 0.7 K/uL (0-0.8); NRBC (%) 4.7 /100 WBC (0-0); PLATELET COUNT 178 K/uL (156-360); RBC DIS.WIDTH-CV 19.8 % (11.8-14.6); RBC DIS.WIDTH-SD 65.6 % (39-53); RED BLOOD COUNT 4.18 M/uL (4.00-5.50)
[2016-12-25 06:29] LABS: WHITE BLOOD COUNT 6.6 K/uL (4.1-10.2)
[2016-12-25 08:00] VITALS: BP 105/62
[2016-12-25 12:00] VITALS: BP 118/66
[2016-12-25 12:29] LABS: POINT-OF-CARE METER ID UU14174217; POINT-OF-CARE USER ID 606021424
[2016-12-25 16:00] VITALS: BP 105/56
[2016-12-25 18:16] LABS: POINT-OF-CARE METER ID UU14174217
[2016-12-25 20:00] VITALS: BP 116/61
[2016-12-25 22:25] LABS: POINT-OF-CARE METER ID UU13113731
[2016-12-26] VITALS: BP 117/66
[2016-12-26 04:00] VITALS: BP 124/67
[2016-12-26 06:28] LABS: EOSINOPHIL (%) 0 % (0-5); HEMATOCRIT 41.6 % (38.0-50.0); IMMATURE GRANULOCYTE (%) 2.1 % (0.0-0.7); IMMATURE GRANULOCYTE COUNT 0.2 K/uL; INSTRUMENT ABS NEUTROPHIL CT 9.6 K/uL; LYMPHOCYTE COUNT 0.7 K/uL (1.0-2.8); MCH 29.8 PG (29.0-34.0); MCHC 30.8 G/DL (30.0-36.0); MCV 96.7 FL (86-99); MEAN PLAT.VOLUME 9.8 uM^3 (9.0-12.4); MONOCYTE (%) 7.5 % (3-12); MONOCYTE COUNT 0.9 K/uL (0-0.8); NEUTROPHIL (%) 84.3 % (45-76); NEUTROPHIL COUNT 9.6 K/uL (1.8-6.4); NRBC (%) 1.8 /100 WBC (0-0); PLATELET COUNT 183 K/uL (156-360); RBC DIS.WIDTH-CV 20.4 % (11.8-14.6); RBC DIS.WIDTH-SD 67.7 % (39-53)
[2016-12-26 06:30] LABS: WHITE BLOOD COUNT 11.4 K/uL (4.1-10.2)
[2016-12-26 06:52] LABS: ANION GAP 11 MEQ/L (2-14); CHLORIDE 99 MEQ/L (99-109); GFR ESTIMATE (CALCULATED) 16 mL/min/; GLUCOSE 149 mg/dL (70-99); SAMPLE HEMOLYSIS CHECK 0; SAMPLE ICTERIC CHECK 0; SAMPLE LIPEMIA CHECK 0; SODIUM 134 MEQ/L (136-147)
[2016-12-26 06:53] LABS: UREA NITROGEN (BUN) 81 mg/dL (9-23)
[2016-12-26 13:45] VITALS: BP 127/72
[2016-12-26 14:28] LABS: POINT-OF-CARE METER ID UU13113731
[2016-12-26 16:00] VITALS: BP 108/65
[2016-12-26 17:20] LABS: POINT-OF-CARE METER ID UU13113731
[2016-12-26 20:00] VITALS: BP 109/57
[2016-12-26 23:06] LABS: POINT-OF-CARE METER ID UU13113731
[2016-12-27] VITALS (7 sets, daily range): BP systolic 90–105; BP diastolic 45–55
[2016-12-27 06:33] LABS: ANION GAP 6 MEQ/L (2-14); CHLORIDE 99 MEQ/L (99-109); GFR ESTIMATE (CALCULATED) 23 mL/min/; GLUCOSE 108 mg/dL (70-99); POTASSIUM 5.6 MEQ/L (3.7-5.4); SAMPLE HEMOLYSIS CHECK 0; SAMPLE ICTERIC CHECK 0; SAMPLE LIPEMIA CHECK 0; SODIUM 134 MEQ/L (136-147); UREA NITROGEN (BUN) 50 mg/dL (9-23)
[2016-12-27 06:50] LABS: EOSINOPHIL (%) 0 % (0-5); HEMATOCRIT 43.6 % (38.0-50.0); IMMATURE GRANULOCYTE (%) 1.1 % (0.0-0.7); IMMATURE GRANULOCYTE COUNT 0.2 K/uL; INSTRUMENT ABS NEUTROPHIL CT 16.2 K/uL; LYMPHOCYTE COUNT 0.6 K/uL (1.0-2.8); MCHC 30.3 G/DL (30.0-36.0); MCV 99.1 FL (86-99); MONOCYTE (%) 6.3 % (3-12); MONOCYTE COUNT 1.1 K/uL (0-0.8); NEUTROPHIL (%) 89.5 % (45-76); NEUTROPHIL COUNT 16.2 K/uL (1.8-6.4); NRBC (%) 0.6 /100 WBC (0-0); PLATELET COUNT 149 K/uL (156-360); RBC DIS.WIDTH-CV 20.5 % (11.8-14.6); RBC DIS.WIDTH-SD 71.5 % (39-53)
[2016-12-27 06:53] LABS: WHITE BLOOD COUNT 18.1 K/uL (4.1-10.2)
[2016-12-27 09:43] LABS: POINT-OF-CARE METER ID UU13113731
[2016-12-27 15:39] LABS: POINT-OF-CARE METER ID UU13113731
[2016-12-27 22:57] LABS: POINT-OF-CARE METER ID UU13113731
[2016-12-28] VITALS (8 sets, daily range): BP systolic 91–108; BP diastolic 46–56
[2016-12-28 06:03] LABS: EOSINOPHIL (%) 0 % (0-5); HEMATOCRIT 44.1 % (38.0-50.0); IMMATURE GRANULOCYTE (%) 1.4 % (0.0-0.7); IMMATURE GRANULOCYTE COUNT 0.2 K/uL; INSTRUMENT ABS NEUTROPHIL CT 11.7 K/uL; LYMPHOCYTE COUNT 0.5 K/uL (1.0-2.8); MCH 30.3 PG (29.0-34.0); MCHC 30.6 G/DL (30.0-36.0); MCV 99.1 FL (86-99); MEAN PLAT.VOLUME 10.1 uM^3 (9.0-12.4); MONOCYTE (%) 6.3 % (3-12); MONOCYTE COUNT 0.8 K/uL (0-0.8); NEUTROPHIL COUNT 11.7 K/uL (1.8-6.4); NRBC (%) 0.4 /100 WBC (0-0); PLATELET COUNT 130 K/uL (156-360); RBC DIS.WIDTH-CV 20.2 % (11.8-14.6); RBC DIS.WIDTH-SD 70.4 % (39-53); RED BLOOD COUNT 4.45 M/uL (4.00-5.50); WHITE BLOOD COUNT 13.3 K/uL (4.1-10.2)
[2016-12-28 06:29] LABS: ANION GAP 9 MEQ/L (2-14); CHLORIDE 98 MEQ/L (99-109); GFR ESTIMATE (CALCULATED) 21 mL/min/; POTASSIUM 5.5 MEQ/L (3.7-5.4); SAMPLE HEMOLYSIS CHECK 0; SAMPLE ICTERIC CHECK 0; SAMPLE LIPEMIA CHECK 0; SODIUM 134 MEQ/L (136-147); UREA NITROGEN (BUN) 63 mg/dL (9-23)
[2016-12-28 06:42] LABS: GLUCOSE 232 mg/dL (70-99)
[2016-12-28 09:04] LABS: POINT-OF-CARE METER ID UU13113803
[2016-12-28 12:47] LABS: POINT-OF-CARE METER ID UU13113731
[2016-12-28 17:10] LABS: POINT-OF-CARE METER ID UU13113731
[2016-12-28 22:15] LABS: POINT-OF-CARE METER ID UU13113803
[2016-12-29] VITALS (7 sets, daily range): BP systolic 93–109; BP diastolic 47–57
[2016-12-29 06:07] LABS: EOSINOPHIL (%) 0 % (0-5); HEMATOCRIT 43.7 % (38.0-50.0); IMMATURE GRANULOCYTE (%) 1.3 % (0.0-0.7); IMMATURE GRANULOCYTE COUNT 0.2 K/uL; INSTRUMENT ABS NEUTROPHIL CT 12.4 K/uL; LYMPHOCYTE COUNT 0.4 K/uL (1.0-2.8); MCH 30.2 PG (29.0-34.0); MCHC 30.9 G/DL (30.0-36.0); MCV 97.8 FL (86-99); MEAN PLAT.VOLUME 10.4 uM^3 (9.0-12.4); MONOCYTE (%) 7.2 % (3-12); NEUTROPHIL (%) 88.4 % (45-76); NEUTROPHIL COUNT 12.4 K/uL (1.8-6.4); NRBC (%) 0.3 /100 WBC (0-0); PLATELET COUNT 135 K/uL (156-360); RBC DIS.WIDTH-SD 71.7 % (39-53); RED BLOOD COUNT 4.47 M/uL (4.00-5.50)
[2016-12-29 06:42] LABS: ANION GAP 11 MEQ/L (2-14); CHLORIDE 98 MEQ/L (99-109); GFR ESTIMATE (CALCULATED) 16 mL/min/; GLUCOSE 187 mg/dL (70-99); POTASSIUM 5.3 MEQ/L (3.7-5.4); SAMPLE HEMOLYSIS CHECK 0; SAMPLE ICTERIC CHECK 0; SAMPLE LIPEMIA CHECK 0; SODIUM 136 MEQ/L (136-147); UREA NITROGEN (BUN) 94 mg/dL (9-23)
[2016-12-29 14:54] LABS: POINT-OF-CARE METER ID UU13113681
[2016-12-30] VITALS: BP 95/48
[2016-12-30 04:00] VITALS: BP 96/52
[2016-12-30 04:58] LABS: HEMATOCRIT 45.2 % (38.0-50.0); MCH 30.1 PG (29.0-34.0); MCHC 31.2 G/DL (30.0-36.0); MCV 96.4 FL (86-99); MEAN PLAT.VOLUME 10.3 uM^3 (9.0-12.4); NRBC (%) 0.2 /100 WBC (0-0); PLATELET COUNT 125 K/uL (156-360); RBC DIS.WIDTH-CV 20.1 % (11.8-14.6); RBC DIS.WIDTH-SD 69.9 % (39-53); RED BLOOD COUNT 4.69 M/uL (4.00-5.50); WHITE BLOOD COUNT 16.4 K/uL (4.1-10.2)
[2016-12-30 05:11] LABS: CHLORIDE 103 mEq/L (99-109); SODIUM 136 mEq/L (136-147)
[2016-12-30 05:13] LABS: GLUCOSE 142 mg/dL (70-99)
[2016-12-30 05:15] LABS: ANION GAP 11 MEQ/L (2-14)
[2016-12-30 05:17] LABS: GFR ESTIMATE (CALCULATED) 25 mL/min/
[2016-12-30 05:18] LABS: UREA NITROGEN (BUN) 53 mg/dL (9-23)
[2016-12-30 08:00] VITALS: BP 88/51
[2016-12-30 12:15] VITALS: BP 95/50
[2016-12-30 12:21] LABS: POINT-OF-CARE METER ID UU13113731
[2016-12-30 12:40] LABS: C DIFF TOXIN POSITIVE (NEGATIVE)
[2016-12-30 12:50] LABS: PROBE CHECK PASS
[2016-12-30 17:23] LABS: POINT-OF-CARE METER ID UU14174225
[2016-12-30 19:47] VITALS: BP 107/59
[2016-12-30 21:27] LABS: POINT-OF-CARE METER ID UU14188625
[2016-12-30 23:51] VITALS: BP 112/65
[2016-12-31 04:22] VITALS: BP 101/58
[2016-12-31 07:56] VITALS: BP 118/58
[2016-12-31 09:43] LABS: EOSINOPHIL (%) 0 % (0-5); HEMATOCRIT 43.2 % (38.0-50.0); IMMATURE GRANULOCYTE (%) 0.6 % (0.0-0.7); IMMATURE GRANULOCYTE COUNT 0.1 K/uL; INSTRUMENT ABS NEUTROPHIL CT 16.6 K/uL; LYMPHOCYTE COUNT 0.4 K/uL (1.0-2.8); MCH 30.4 PG (29.0-34.0); MEAN PLAT.VOLUME 10.9 uM^3 (9.0-12.4); MONOCYTE (%) 6.1 % (3-12); MONOCYTE COUNT 1.1 K/uL (0-0.8); NEUTROPHIL COUNT 16.6 K/uL (1.8-6.4); NRBC (%) 0.2 /100 WBC (0-0); PLATELET COUNT 148 K/uL (156-360); RBC DIS.WIDTH-CV 19.6 % (11.8-14.6); RBC DIS.WIDTH-SD 70.3 % (39-53); RED BLOOD COUNT 4.41 M/uL (4.00-5.50); WHITE BLOOD COUNT 18.3 K/uL (4.1-10.2)
[2016-12-31 09:52] LABS: ALKALINE PHOSPHATASE 63 IU/L (3-129); ANION GAP 11 MEQ/L (2-14); CHLORIDE 99 MEQ/L (99-109); GFR ESTIMATE (CALCULATED) 17 mL/min/; POTASSIUM 5.8 MEQ/L (3.7-5.4); SAMPLE HEMOLYSIS CHECK 0; SAMPLE ICTERIC CHECK 0; SAMPLE LIPEMIA CHECK 0; SODIUM 132 MEQ/L (136-147); TOTAL BILIRUBIN 0.4 MG/DL (0.0-1.0)
[2016-12-31 10:02] LABS: GLUCOSE 279 mg/dL (70-99); UREA NITROGEN (BUN) 87 mg/dL (9-23)
[2016-12-31 13:13] VITALS: BP 102/68
[2016-12-31 15:55] VITALS: BP 105/57
[2016-12-31 16:47] LABS: POINT-OF-CARE METER ID UU14188625
[2016-12-31 20:03] VITALS: BP 99/54
[2017-01-01] VITALS (7 sets, daily range): BP systolic 65–146; BP diastolic 42–85
[2017-01-01 06:02] LABS: ANION GAP 9 MEQ/L (2-14); CHLORIDE 99 MEQ/L (99-109); GFR ESTIMATE (CALCULATED) 20 mL/min/; GLUCOSE 271 mg/dL (70-99); POTASSIUM 5.2 MEQ/L (3.7-5.4); SAMPLE HEMOLYSIS CHECK 0; SAMPLE ICTERIC CHECK 0; SAMPLE LIPEMIA CHECK 0; SODIUM 135 MEQ/L (136-147); UREA NITROGEN (BUN) 59 mg/dL (9-23)
[2017-01-01 06:18] LABS: BASOPHIL COUNT 0.1 K/uL (0-0.1); EOSINOPHIL (%) 0 % (0-5); HEMATOCRIT 43.7 % (38.0-50.0); IMMATURE GRANULOCYTE (%) 2.2 % (0.0-0.7); IMMATURE GRANULOCYTE COUNT 0.6 K/uL; LYMPHOCYTE COUNT 0.3 K/uL (1.0-2.8); MCH 29.7 PG (29.0-34.0); MCHC 30.9 G/DL (30.0-36.0); MEAN PLAT.VOLUME 10.7 uM^3 (9.0-12.4); MONOCYTE (%) 9.4 % (3-12); MONOCYTE COUNT 2.4 K/uL (0-0.8); NEUTROPHIL (%) 87.1 % (45-76); NRBC (%) 0.1 /100 WBC (0-0); PLATELET COUNT 158 K/uL (156-360); RBC DIS.WIDTH-CV 19.5 % (11.8-14.6); RBC DIS.WIDTH-SD 67.9 % (39-53); RED BLOOD COUNT 4.55 M/uL (4.00-5.50)
[2017-01-01 06:27] LABS: WHITE BLOOD COUNT 25.3 K/uL (4.1-10.2)
[2017-01-01 12:15] LABS: POINT-OF-CARE METER ID UU14174225
[2017-01-01 13:03] LABS: TROP-I INTERPRETATION NEGATIVE; TROPONIN-I 0.06 ng/mL (0.0-0.30)
[2017-01-02] VITALS: BP 130/75
[2017-01-02 04:00] VITALS: BP 110/44
[2017-01-02 08:27] VITALS: BP 99/53
[2017-01-02 09:19] LABS: HEMATOCRIT 42.8 % (38.0-50.0); MCH 29.4 PG (29.0-34.0); MCHC 30.6 G/DL (30.0-36.0); MCV 96.2 FL (86-99); MEAN PLAT.VOLUME 10.9 uM^3 (9.0-12.4); PLATELET COUNT 138 K/uL (156-360); RBC DIS.WIDTH-CV 19.3 % (11.8-14.6); RBC DIS.WIDTH-SD 67.7 % (39-53); RED BLOOD COUNT 4.45 M/uL (4.00-5.50); WHITE BLOOD COUNT 29.7 K/uL (4.1-10.2)
[2017-01-02 09:23] LABS: ANION GAP 10 MEQ/L (2-14); CHLORIDE 98 MEQ/L (99-109); POTASSIUM 5.7 MEQ/L (3.7-5.4); SAMPLE HEMOLYSIS CHECK 0; SAMPLE ICTERIC CHECK 0; SAMPLE LIPEMIA CHECK 0; SODIUM 133 MEQ/L (136-147)
[2017-01-02 09:30] LABS: GFR ESTIMATE (CALCULATED) 14 mL/min/; GLUCOSE 319 mg/dL (70-99)
[2017-01-02 09:32] LABS: UREA NITROGEN (BUN) 94 mg/dL (9-23)
[2017-01-02 15:19] VITALS: BP 104/57
[2017-01-02 16:53] LABS: POINT-OF-CARE METER ID UU14188625
[2017-01-02 20:10] VITALS: BP 118/58
[2017-01-02 23:33] VITALS: BP 113/62
[2017-01-03 04:04] VITALS: BP 120/65
[2017-01-03 07:13] LABS: HEMATOCRIT 42.6 % (38.0-50.0); MCH 29.6 PG (29.0-34.0); MCV 98.6 FL (86-99); MEAN PLAT.VOLUME 9.9 uM^3 (9.0-12.4); PLATELET COUNT 144 K/uL (156-360); RBC DIS.WIDTH-CV 19.4 % (11.8-14.6); RBC DIS.WIDTH-SD 69.8 % (39-53); RED BLOOD COUNT 4.32 M/uL (4.00-5.50); WHITE BLOOD COUNT 22.6 K/uL (4.1-10.2)
[2017-01-03 07:37] LABS: ANION GAP 8 MEQ/L (2-14); CHLORIDE 103 MEQ/L (99-109); GFR ESTIMATE (CALCULATED) 21 mL/min/; POTASSIUM 5.2 MEQ/L (3.7-5.4); SAMPLE HEMOLYSIS CHECK 0; SAMPLE ICTERIC CHECK 0; SAMPLE LIPEMIA CHECK 0; SODIUM 137 MEQ/L (136-147); UREA NITROGEN (BUN) 54 mg/dL (9-23)
[2017-01-03 07:39] LABS: GLUCOSE 108 mg/dL (70-99)
[2017-01-03 08:33] VITALS: BP 147/82
[2017-01-03 11:48] VITALS: BP 107/64
[2017-01-03 16:51] VITALS: BP 106/65
[2017-01-03 20:20] VITALS: BP 117/68
[2017-01-03 23:30] VITALS: BP 97/56
[2017-01-04 04:08] VITALS: BP 96/59
[2017-01-04 06:51] LABS: HEMATOCRIT 41.8 % (38.0-50.0); MCH 29.5 PG (29.0-34.0); MCHC 29.9 G/DL (30.0-36.0); MCV 98.6 FL (86-99); PLATELET COUNT 151 K/uL (156-360); RBC DIS.WIDTH-CV 19.3 % (11.8-14.6); RBC DIS.WIDTH-SD 69.2 % (39-53); RED BLOOD COUNT 4.24 M/uL (4.00-5.50)
[2017-01-04 06:52] LABS: WHITE BLOOD COUNT 14.8 K/uL (4.1-10.2)
[2017-01-04 07:37] LABS: ANION GAP 11 MEQ/L (2-14); CHLORIDE 100 MEQ/L (99-109); GFR ESTIMATE (CALCULATED) 16 mL/min/; GLUCOSE 159 mg/dL (70-99); POTASSIUM 5.8 MEQ/L (3.7-5.4); SAMPLE HEMOLYSIS CHECK 0; SAMPLE ICTERIC CHECK 0; SAMPLE LIPEMIA CHECK 0; SODIUM 135 MEQ/L (136-147)
[2017-01-04 07:41] LABS: UREA NITROGEN (BUN) 84 mg/dL (9-23)
[2017-01-04 07:45] VITALS: BP 107/89
[2017-01-04 08:08] LABS: POINT-OF-CARE METER ID UU14188625
[2017-01-04 11:41] VITALS: BP 101/73
[2017-01-04 12:13] LABS: POINT-OF-CARE METER ID UU14188625
[2017-01-04 17:04] VITALS: BP 105/74
[2017-01-04 19:37] VITALS: BP 125/66
[2017-01-04 23:47] VITALS: BP 132/60
[2017-01-05 03:38] VITALS: BP 121/64
[2017-01-05 05:53] LABS: POINT-OF-CARE METER ID UU14174225
[2017-01-05 09:16] LABS: HEMATOCRIT 41.3 % (38.0-50.0); MCH 29.5 PG (29.0-34.0); MCV 98.1 FL (86-99); PLATELET COUNT 164 K/uL (156-360); RBC DIS.WIDTH-SD 68.3 % (39-53); RED BLOOD COUNT 4.21 M/uL (4.00-5.50)
[2017-01-05 09:33] LABS: ANION GAP 11 MEQ/L (2-14); CHLORIDE 100 MEQ/L (99-109); GFR ESTIMATE (CALCULATED) 13 mL/min/; GLUCOSE 222 mg/dL (70-99); SAMPLE HEMOLYSIS CHECK 0; SAMPLE ICTERIC CHECK 0; SAMPLE LIPEMIA CHECK 0; SODIUM 133 MEQ/L (136-147)
[2017-01-05 09:38] LABS: POTASSIUM 6.4 MEQ/L (3.7-5.4); UREA NITROGEN (BUN) 112 mg/dL (9-23)
[2017-01-05 16:30] VITALS: BP 118/58
[2017-01-05 16:53] LABS: POINT-OF-CARE METER ID UU14174225
[2017-01-05 19:43] VITALS: BP 108/57
[2017-01-05 23:50] VITALS: BP 110/54
[2017-01-06 04:05] VITALS: BP 104/59
[2017-01-06 07:46] VITALS: BP 120/59
[2017-01-06 09:10] LABS: ANION GAP 9 MEQ/L (2-14); CHLORIDE 100 MEQ/L (99-109); GFR ESTIMATE (CALCULATED) 21 mL/min/; POTASSIUM 5.5 MEQ/L (3.7-5.4); SAMPLE HEMOLYSIS CHECK 0; SAMPLE ICTERIC CHECK 0; SAMPLE LIPEMIA CHECK 0; SODIUM 134 MEQ/L (136-147); UREA NITROGEN (BUN) 67 mg/dL (9-23)
[2017-01-06 09:16] LABS: GLUCOSE 77 mg/dL (70-99)
[2017-01-06 11:20] VITALS: BP 114/57
[2017-01-06] MEDS ORDERED: VANCOMYCIN HCL125 MG PO (13:26)
[2017-01-06 15:20] VITALS: BP 104/57
[2017-01-06 17:01] LABS: POINT-OF-CARE METER ID UU14174225
[2017-01-06 19:49] VITALS: BP 123/69
[2017-01-06 23:44] VITALS: BP 119/72
[2017-01-07 04:00] VITALS: BP 110/58
[2017-01-07 08:09] VITALS: BP 124/60
[2017-01-07 08:20] LABS: HEMATOCRIT 41.9 % (38.0-50.0); MCH 29.6 PG (29.0-34.0); MCHC 30.5 G/DL (30.0-36.0); MEAN PLAT.VOLUME 11.2 uM^3 (9.0-12.4); PLATELET COUNT 142 K/uL (156-360); RBC DIS.WIDTH-CV 18.7 % (11.8-14.6); RBC DIS.WIDTH-SD 67.4 % (39-53); RED BLOOD COUNT 4.32 M/uL (4.00-5.50); WHITE BLOOD COUNT 9.9 K/uL (4.1-10.2)
[2017-01-07 08:45] LABS: ANION GAP 10 MEQ/L (2-14); CHLORIDE 102 MEQ/L (99-109); GFR ESTIMATE (CALCULATED) 16 mL/min/; GLUCOSE 276 mg/dL (70-99); SAMPLE HEMOLYSIS CHECK 0; SAMPLE ICTERIC CHECK 0; SAMPLE LIPEMIA CHECK 0; SODIUM 136 MEQ/L (136-147); UREA NITROGEN (BUN) 90 mg/dL (9-23)
[2017-01-07 09:42] LABS: POINT-OF-CARE METER ID UU14188625
[2017-01-07 12:11] VITALS: BP 138/64
[2017-01-07 15:37] VITALS: BP 106/64
[2017-01-07 16:40] LABS: POINT-OF-CARE METER ID UU14174225
[2017-01-07 19:34] VITALS: BP 113/66
[2017-01-07 21:37] LABS: POINT-OF-CARE METER ID UU14188625
[2017-01-07 21:48] LABS: POINT-OF-CARE METER ID UU14174225
[2017-01-07 23:04] VITALS: BP 110/55
[2017-01-08 03:25] VITALS: BP 106/68
[2017-01-08 08:21] VITALS: BP 138/72
[2017-01-08 09:25] LABS: ANION GAP 12 MEQ/L (2-14); CHLORIDE 98 MEQ/L (99-109); GFR ESTIMATE (CALCULATED) 22 mL/min/; GLUCOSE 117 mg/dL (70-99); SAMPLE HEMOLYSIS CHECK 0; SAMPLE ICTERIC CHECK 0; SAMPLE LIPEMIA CHECK 0; SODIUM 136 MEQ/L (136-147); UREA NITROGEN (BUN) 59 mg/dL (9-23)
[2017-01-08 11:51] VITALS: BP 124/60
[2017-01-08 16:46] VITALS: BP 100/62
[2017-01-08 20:00] VITALS: BP 116/73
[2017-01-08 21:16] LABS: POINT-OF-CARE METER ID UU14188625
[2017-01-08 23:30] VITALS: BP 103/57
[2017-01-09 00:42] LABS: ADD MIUA? YES; BILIRUBIN NEGATIVE; BLOOD LARGE; COLOR AMBER ((YELLOW)); GLUCOSE (STRIP) >=500; KETONES NEGATIVE; LEUKOCYTES LARGE; NITRITE NEGATIVE; PROTEIN (STRIP) 100; UROBILINOGEN 0.2 MG/DL (0.2-1.0)
[2017-01-09 00:53] LABS: BACTERIA RARE /HPF; EPITHELIAL CELLS RARE /HPF; MUCUS TRACE /LPF; RED BLOOD CELLS TNTC /HPF (0-5); WHITE BLOOD CELLS 40-50 /HPF (0-5); WHITE BLOOD CELLS CLUMP FEW /HPF (0-5)
[2017-01-09 03:47] VITALS: BP 100/59
[2017-01-09 06:15] LABS: HEMATOCRIT 45.9 % (38.0-50.0); MCH 30.3 PG (29.0-34.0); MCHC 31.4 G/DL (30.0-36.0); MCV 96.6 FL (86-99); MEAN PLAT.VOLUME 11.1 uM^3 (9.0-12.4); PLATELET COUNT 133 K/uL (156-360); RBC DIS.WIDTH-CV 18.9 % (11.8-14.6); RBC DIS.WIDTH-SD 67.1 % (39-53); RED BLOOD COUNT 4.75 M/uL (4.00-5.50); WHITE BLOOD COUNT 7.4 K/uL (4.1-10.2)
[2017-01-09 06:27] LABS: POINT-OF-CARE METER ID UU14174225
[2017-01-09 06:51] LABS: ANION GAP 10 MEQ/L (2-14); CHLORIDE 98 MEQ/L (99-109); GFR ESTIMATE (CALCULATED) 18 mL/min/; GLUCOSE 149 mg/dL (70-99); POTASSIUM 5.3 MEQ/L (3.7-5.4); SAMPLE HEMOLYSIS CHECK 0; SAMPLE ICTERIC CHECK 0; SAMPLE LIPEMIA CHECK 0; SODIUM 135 MEQ/L (136-147); UREA NITROGEN (BUN) 83 mg/dL (9-23)
[2017-01-09 08:00] VITALS: BP 102/60
[2017-01-09 11:29] VITALS: BP 94/56
[2017-01-09 19:54] VITALS: BP 96/54
[2017-01-09 21:45] LABS: POINT-OF-CARE METER ID UU14188625
[2017-01-09 23:56] VITALS: BP 111/53
[2017-01-10 04:00] VITALS: BP 115/58
[2017-01-10 07:39] LABS: HEMATOCRIT 42.8 % (38.0-50.0); MCH 30.4 PG (29.0-34.0); MCHC 31.5 G/DL (30.0-36.0); MCV 96.4 FL (86-99); MEAN PLAT.VOLUME 11.9 uM^3 (9.0-12.4); PLATELET COUNT 123 K/uL (156-360); RBC DIS.WIDTH-CV 18.7 % (11.8-14.6); RBC DIS.WIDTH-SD 66.7 % (39-53); RED BLOOD COUNT 4.44 M/uL (4.00-5.50); WHITE BLOOD COUNT 8.2 K/uL (4.1-10.2)
[2017-01-10 08:07] VITALS: BP 122/60
[2017-01-10 08:24] LABS: ANION GAP 10 MEQ/L (2-14); CHLORIDE 100 MEQ/L (99-109); GFR ESTIMATE (CALCULATED) 24 mL/min/; GLUCOSE 187 mg/dL (70-99); POTASSIUM 4.9 MEQ/L (3.7-5.4); SAMPLE HEMOLYSIS CHECK 0; SAMPLE ICTERIC CHECK 0; SAMPLE LIPEMIA CHECK 0; SODIUM 135 MEQ/L (136-147); UREA NITROGEN (BUN) 53 mg/dL (9-23)
[2017-01-10 15:50] VITALS: BP 124/62
[2017-01-10 17:17] LABS: POINT-OF-CARE METER ID UU14174225
[2017-01-10 22:25] LABS: POINT-OF-CARE METER ID UU14188625
[2017-01-11 00:13] VITALS: BP 112/61
[2017-01-11 07:44] LABS: POINT-OF-CARE METER ID UU14174225
[2017-01-11 07:54] VITALS: BP 132/68
[2017-01-11 11:55] LABS: POINT-OF-CARE METER ID UU14174225
[2017-01-11 14:26] VITALS: BP 102/51
[2017-01-11 16:11] LABS: POINT-OF-CARE METER ID UU14188625
[2017-01-11 21:03] LABS: POINT-OF-CARE METER ID UU14188625
[2017-01-11 23:24] VITALS: BP 115/52
[2017-01-12 07:32] VITALS: BP 142/66
[2017-01-12 13:41] LABS: HEMATOCRIT 41.3 % (38.0-50.0); MCV 96.9 FL (86-99); MEAN PLAT.VOLUME 10.9 uM^3 (9.0-12.4); RBC DIS.WIDTH-CV 18.6 % (11.8-14.6); RBC DIS.WIDTH-SD 66.4 % (39-53); RED BLOOD COUNT 4.26 M/uL (4.00-5.50)
[2017-01-12 13:42] LABS: PLATELET COUNT 190 K/uL (156-360); WHITE BLOOD COUNT 13.6 K/uL (4.1-10.2)
[2017-01-12 14:07] LABS: ANION GAP 11 MEQ/L (2-14); CHLORIDE 97 MEQ/L (99-109); SAMPLE HEMOLYSIS CHECK 0; SAMPLE ICTERIC CHECK 0; SAMPLE LIPEMIA CHECK 0; SODIUM 131 MEQ/L (136-147)
[2017-01-12 14:08] LABS: GFR ESTIMATE (CALCULATED) 16 mL/min/; GLUCOSE 283 mg/dL (70-99); UREA NITROGEN (BUN) 94 mg/dL (9-23)
[2017-01-12 18:22] LABS: CHLORIDE 102 mEq/L (99-109); SODIUM 134 mEq/L (136-147)
[2017-01-12 18:23] LABS: POTASSIUM 4.6 mEq/L (3.7-5.4)
[2017-01-12 18:24] LABS: GLUCOSE 189 mg/dL (70-99)
[2017-01-12 18:25] LABS: ANION GAP 8 MEQ/L (2-14)
[2017-01-12 18:28] LABS: GFR ESTIMATE (CALCULATED) 38 mL/min/
[2017-01-12 18:29] LABS: UREA NITROGEN (BUN) 30 mg/dL (9-23)
[2017-01-12 21:35] LABS: POINT-OF-CARE METER ID UU14188625
[2017-01-12 23:34] VITALS: BP 106/68
[2017-01-13 07:26] VITALS: BP 124/68
[2017-01-13 09:25] LABS: POINT-OF-CARE METER ID UU14188625
[2017-01-13 11:51] LABS: POINT-OF-CARE METER ID UU14188625
[2017-01-13 15:22] VITALS: BP 126/72
[2017-01-13 16:40] LABS: POINT-OF-CARE METER ID UU14188625
[2017-01-13 23:27] VITALS: BP 111/64
[2017-01-14 07:26] LABS: HEMATOCRIT 39.4 % (38.0-50.0); MCHC 30.7 G/DL (30.0-36.0); MCV 97.5 FL (86-99); MEAN PLAT.VOLUME 11.2 uM^3 (9.0-12.4); PLATELET COUNT 204 K/uL (156-360); RBC DIS.WIDTH-CV 18.4 % (11.8-14.6); RBC DIS.WIDTH-SD 65.6 % (39-53); RED BLOOD COUNT 4.04 M/uL (4.00-5.50); WHITE BLOOD COUNT 9.6 K/uL (4.1-10.2)
[2017-01-14 07:55] LABS: ANION GAP 9 MEQ/L (2-14); CHLORIDE 96 MEQ/L (99-109); GLUCOSE 205 mg/dL (70-99); SAMPLE HEMOLYSIS CHECK 0; SAMPLE ICTERIC CHECK 0; SAMPLE LIPEMIA CHECK 0; SODIUM 131 MEQ/L (136-147)
[2017-01-14 07:57] VITALS: BP 128/60
[2017-01-14 08:06] LABS: GFR ESTIMATE (CALCULATED) 20 mL/min/; POTASSIUM 5.8 MEQ/L (3.7-5.4); UREA NITROGEN (BUN) 68 mg/dL (9-23)
[2017-01-14 16:00] VITALS: BP 110/70
[2017-01-14 21:48] LABS: POINT-OF-CARE METER ID UU14188625
[2017-01-15 00:09] VITALS: BP 110/57
[2017-01-15 07:17] LABS: HEMATOCRIT 41.2 % (38.0-50.0); MCH 29.5 PG (29.0-34.0); MCHC 30.3 G/DL (30.0-36.0); MCV 97.2 FL (86-99); PLATELET COUNT 185 K/uL (156-360); RBC DIS.WIDTH-CV 18.1 % (11.8-14.6); RBC DIS.WIDTH-SD 64.9 % (39-53); RED BLOOD COUNT 4.24 M/uL (4.00-5.50); WHITE BLOOD COUNT 9.9 K/uL (4.1-10.2)
[2017-01-15 07:28] VITALS: BP 113/58
[2017-01-15 07:45] LABS: ANION GAP 8 MEQ/L (2-14); CHLORIDE 95 MEQ/L (99-109); GFR ESTIMATE (CALCULATED) 23 mL/min/; GLUCOSE 160 mg/dL (70-99); POTASSIUM 5.7 MEQ/L (3.7-5.4); SAMPLE HEMOLYSIS CHECK 0; SAMPLE ICTERIC CHECK 0; SAMPLE LIPEMIA CHECK 0; SODIUM 131 MEQ/L (136-147); UREA NITROGEN (BUN) 50 mg/dL (9-23)
[2017-01-15 13:35] LABS: INTERNAL CONTROL VALID? YES
[2017-01-15 15:30] VITALS: BP 96/56
[2017-01-15 21:13] LABS: POINT-OF-CARE METER ID UU14188625
[2017-01-15 23:50] VITALS: BP 113/55
[2017-01-16 07:04] LABS: ANION GAP 7 MEQ/L (2-14); CHLORIDE 93 MEQ/L (99-109); GFR ESTIMATE (CALCULATED) 18 mL/min/; GLUCOSE 114 mg/dL (70-99); POTASSIUM 6.9 MEQ/L (3.7-5.4); SAMPLE HEMOLYSIS CHECK 0; SAMPLE ICTERIC CHECK 0; SAMPLE LIPEMIA CHECK 0; SODIUM 127 MEQ/L (136-147); UREA NITROGEN (BUN) 76 mg/dL (9-23)
[2017-01-16 07:37] VITALS: BP 112/54
[2017-01-16 20:27] LABS: ANION GAP 7 MEQ/L (2-14); CHLORIDE 94 MEQ/L (99-109); GFR ESTIMATE (CALCULATED) 38 mL/min/; GLUCOSE 62 mg/dL (70-99); POTASSIUM 4.5 MEQ/L (3.7-5.4); SAMPLE HEMOLYSIS CHECK 0; SAMPLE ICTERIC CHECK 0; SAMPLE LIPEMIA CHECK 0; SODIUM 134 MEQ/L (136-147); UREA NITROGEN (BUN) 29 mg/dL (9-23)
[2017-01-17 00:19] VITALS: BP 98/50
[2017-01-17 05:40] LABS: ADD MIUA? YES; BILIRUBIN NEGATIVE; BLOOD LARGE; COLOR YELLOW ((YELLOW)); GLUCOSE (STRIP) >=500; KETONES NEGATIVE; LEUKOCYTES MODERATE; NITRITE NEGATIVE; PROTEIN (STRIP) 100; SPECIFIC GRAVITY 1.011 (1.000-1.030); UROBILINOGEN 0.2 MG/DL (0.2-1.0)
[2017-01-17 06:12] LABS: UCUL ADDED? YES; WHITE BLOOD CELLS TNTC /HPF (0-5)
[2017-01-17 08:22] VITALS: BP 95/60
[2017-01-17 16:13] VITALS: BP 101/68
[2017-01-17 16:54] LABS: POINT-OF-CARE METER ID UU14174225
[2017-01-17 23:43] VITALS: BP 93/57
[2017-01-18 04:54] VITALS: BP 99/64
[2017-01-18 07:43] VITALS: BP 96/64
[2017-01-18 10:42] LABS: POINT-OF-CARE METER ID UU14174225
[2017-01-18 12:17] LABS: POINT-OF-CARE METER ID UU14174225
[2017-01-18 16:32] VITALS: BP 106/65
[2017-01-18 21:35] LABS: POINT-OF-CARE METER ID UU14174225
[2017-01-18 23:43] VITALS: BP 126/65
[2017-01-19 07:44] VITALS: BP 113/58
[2017-01-19 08:42] LABS: HEMATOCRIT 36.1 % (38.0-50.0); MCH 30.3 PG (29.0-34.0); MCHC 32.1 G/DL (30.0-36.0); MCV 94.3 FL (86-99); MEAN PLAT.VOLUME 11.1 uM^3 (9.0-12.4); PLATELET COUNT 221 K/uL (156-360); RBC DIS.WIDTH-CV 17.7 % (11.8-14.6); RBC DIS.WIDTH-SD 61.7 % (39-53); RED BLOOD COUNT 3.83 M/uL (4.00-5.50); WHITE BLOOD COUNT 11.2 K/uL (4.1-10.2)
[2017-01-19 09:24] LABS: ANION GAP 9 MEQ/L (2-14); CHLORIDE 89 MEQ/L (99-109); SAMPLE HEMOLYSIS CHECK 0; SAMPLE ICTERIC CHECK 0; SAMPLE LIPEMIA CHECK 0
[2017-01-19 09:32] LABS: GFR ESTIMATE (CALCULATED) 15 mL/min/; GLUCOSE 258 mg/dL (70-99); POTASSIUM 6.4 MEQ/L (3.7-5.4); SODIUM 127 MEQ/L (136-147); UREA NITROGEN (BUN) 112 mg/dL (9-23)
[2017-01-19 10:27] LABS: HBSG INDEX 0.16
[2017-01-19 12:22] LABS: POINT-OF-CARE METER ID UU14174225
[2017-01-19 12:22] LABS: POINT-OF-CARE METER ID UU14174225
[2017-01-19 13:51] LABS: ANION GAP 6 MEQ/L (2-14); CHLORIDE 94 MEQ/L (99-109); GLUCOSE 184 mg/dL (70-99); SAMPLE HEMOLYSIS CHECK 0; SAMPLE ICTERIC CHECK 0; SAMPLE LIPEMIA CHECK 0
[2017-01-19 13:54] LABS: GFR ESTIMATE (CALCULATED) 38 mL/min/; POTASSIUM 4.6 MEQ/L (3.7-5.4); SODIUM 134 MEQ/L (136-147); UREA NITROGEN (BUN) 35 mg/dL (9-23)
[2017-01-19 15:08] VITALS: BP 116/55
== END 2017-01-19 16:51 | DRG 981 ==
LOC: EME → EDBD 20:13 → 4WEST 12-20 00:33 → 5SOUTH 12-20 00:33 → EDOF 12-20 00:33 → 4EAST 12-20 01:05 → 4WEST 12-20 08:16 → 5SOUTH 12-30 16:01
PROVIDERS: Emergency Medicine; Family Medicine; Hospitalist; Internal Medicine; Internal Medicine Nephrology; Internal Medicine Pulmonary Disease; Physician Assistant Medical
PROC: 0BH18EZ Insertion of Endotracheal Airway into Trachea, Via Natural or Artificial Opening Endoscopic (ICD-10-PCS; principal; 2016-12-20)
PROC: 5A1945Z Respiratory Ventilation, 24-96 Consecutive Hours (ICD-10-PCS; principal; 2016-12-20)
PROC: 5A1D60Z (ICD-10-PCS; 2016-12-22)
PROC: 02PY03Z Removal of Infusion Device from Great Vessel, Open Approach (ICD-10-PCS; 2016-12-23)
DX: S14.122A Central cord syndrome at C2 level of cervical spinal cord, initial encounter (principal); S00.81XA Abrasion of other part of head, initial encounter; W19.XXXA Unspecified fall, initial encounter; Y93.9 Activity, unspecified; Y92.009 Unspecified place in unspecified non-institutional (private) residence as the place of occurrence of the external cause; J96.02 Acute respiratory failure with hypercapnia; J96.01 Acute respiratory failure with hypoxia; J44.1 Chronic obstructive pulmonary disease with (acute) exacerbation; A04.7 Enterocolitis due to Clostridium difficile; E87.5 Hyperkalemia; E87.2 Acidosis; R41.82 Altered mental status, unspecified; N39.0 Urinary tract infection, site not specified; I48.92 Unspecified atrial flutter; I13.2 Hypertensive heart and chronic kidney disease with heart failure and with stage 5 chronic kidney disease, or end stage renal disease; I50.9 Heart failure, unspecified; E11.22 Type 2 diabetes mellitus with diabetic chronic kidney disease; N18.6 End stage renal disease; B96.1 Klebsiella pneumoniae [K. pneumoniae] as the cause of diseases classified elsewhere; M48.02 Spinal stenosis, cervical region; E78.00 Pure hypercholesterolemia, unspecified; F32.9 Major depressive disorder, single episode, unspecified; E78.5 Hyperlipidemia, unspecified; I25.5 Ischemic cardiomyopathy; D63.1 Anemia in chronic kidney disease; E66.9 Obesity, unspecified; I25.10 Atherosclerotic heart disease of native coronary artery without angina pectoris; Z96.652 Presence of left artificial knee joint; N40.1 Benign prostatic hyperplasia with lower urinary tract symptoms; R33.8 Other retention of urine; B96.20 Unspecified Escherichia coli [E. coli] as the cause of diseases classified elsewhere; E11.65 Type 2 diabetes mellitus with hyperglycemia; L89.151 Pressure ulcer of sacral region, stage 1; C67.9 Malignant neoplasm of bladder, unspecified; Z99.81 Dependence on supplemental oxygen; Z95.1 Presence of aortocoronary bypass graft; Z87.891 Personal history of nicotine dependence; Z79.4 Long term (current) use of insulin; Z99.2 Dependence on renal dialysis; I25.2 Old myocardial infarction; Z68.30 Body mass index [BMI] 30.0-30.9, adult
CPT/HCPCS: 36600; 70450; 71010; 72125; 72131; 72141; 74177; 80048; 80048 91; 80053; 80069; 81003; 82272; 82803; 82948; 84132 91; 84484; 85025; 85027; 87070; 87077; 87086; 87186; 87205; 87340; 87493; 87641; 93005; 93990; 94002; 94003; 94010; 94640; 94640 76; 94667; 94668; 94760; 94799; 95819; 97530 GO; 97530 GP; 99202; 99281; 99285; J0610; J1100; J1335; J1644; J1815; J2250; J2270; J2405; J2704; J3010; J7030; J7050; J8540; S0028; S0030

== ENCOUNTER 2017-01-31 09:38 | Inpatient (IN) | payer OTHER ==
[~2017-01-31] VITALS: Ht 157.5 cm; Wt 65.7 kg
[~2017-01-31 09:38] MED LIST changes: +CYCLOBENZAPRINE10 MG PO; +HUMALOG100 UNIT/2 SC; +METOPROLOL TART50 MG PO; +RENA-VITE RX T1 EACH PO; +VANCOMYCIN HCL125 MG PO; +VITAMIN D2000 UNI1 PO
[2017-01-31 10:57] LABS: EOSINOPHIL (%) 0.6 % (0-5); EOSINOPHIL COUNT 0.1 K/uL (0-0.3); IMMATURE GRANULOCYTE COUNT 0.3 K/uL; LYMPHOCYTE COUNT 1.4 K/uL (1.0-2.8); MCH 29.4 PG (29.0-34.0); MCHC 28.6 G/DL (30.0-36.0); MCV 102.9 FL (86-99); MEAN PLAT.VOLUME 9.4 uM^3 (9.0-12.4); MONOCYTE (%) 8.1 % (3-12); MONOCYTE COUNT 0.7 K/uL (0-0.8); NEUTROPHIL (%) 71.1 % (45-76); PLATELET COUNT 162 K/uL (156-360); RBC DIS.WIDTH-CV 18.6 % (11.8-14.6); RBC DIS.WIDTH-SD 70.1 % (39-53); RED BLOOD COUNT 2.72 M/uL (4.00-5.50)
[2017-01-31 10:58] LABS: WHITE BLOOD COUNT 8.5 K/uL (4.1-10.2)
[2017-01-31 11:02] LABS: CHLORIDE 101 mEq/L (99-109); POTASSIUM 3.8 mEq/L (3.7-5.4); SODIUM 134 mEq/L (136-147)
[2017-01-31 11:04] LABS: GLUCOSE 163 mg/dL (70-99)
[2017-01-31 11:05] LABS: ANION GAP 3 MEQ/L (2-14)
[2017-01-31 11:08] LABS: GFR ESTIMATE (CALCULATED) 38 mL/min/; UREA NITROGEN (BUN) 28 mg/dL (9-23)
[2017-01-31 13:38] LABS: ADD MIUA? YES; BILIRUBIN NEGATIVE; BLOOD LARGE; COLOR AMBER ((YELLOW)); GLUCOSE (STRIP) NEGATIVE; KETONES NEGATIVE; LEUKOCYTES LARGE; NITRITE NEGATIVE; PROTEIN (STRIP) 100; SPECIFIC GRAVITY 1.018 (1.000-1.030); UROBILINOGEN 0.2 MG/DL (0.2-1.0)
[2017-01-31 14:02] LABS: BACTERIA NONE SEEN /HPF; EPITHELIAL CELLS NONE SEEN /HPF; MUCUS NONE SEEN /LPF; RED BLOOD CELLS TNTC /HPF (0-5); UCUL ADDED? YES; WHITE BLOOD CELLS TNTC /HPF (0-5)
[2017-01-31] MEDS ORDERED: DOXYCYCLINE HY100 M3 PO (16:26)
[2017-01-31] MEDS ORDERED: PROBIOTIC1 EAC2 PO (16:28)
[2017-01-31] MEDS ORDERED: DULCOLAX10 MG PR (16:30)
[2017-01-31] MEDS ORDERED: PERCOCET 5/31 TABLET PO (16:31)
[2017-01-31] MEDS ORDERED: TYLENOL ARTHRI650 MG PO (16:32)
[2017-01-31 21:09] VITALS: BP 117/58
[2017-02-01 03:14] VITALS: BP 102/55
[2017-02-01 07:18] VITALS: BP 80/40
[2017-02-01 07:29] LABS: EOSINOPHIL (%) 1.2 % (0-5); EOSINOPHIL COUNT 0.1 K/uL (0-0.3); HEMATOCRIT 30.3 % (38.0-50.0); IMMATURE GRANULOCYTE (%) 4.9 % (0.0-0.7); IMMATURE GRANULOCYTE COUNT 0.4 K/uL; INSTRUMENT ABS NEUTROPHIL CT 4.9 K/uL; LYMPHOCYTE COUNT 1.6 K/uL (1.0-2.8); MCH 30.8 PG (29.0-34.0); MCHC 29.4 G/DL (30.0-36.0); MCV 104.8 FL (86-99); MEAN PLAT.VOLUME 9.8 uM^3 (9.0-12.4); MONOCYTE (%) 8.5 % (3-12); MONOCYTE COUNT 0.7 K/uL (0-0.8); NEUTROPHIL (%) 63.7 % (45-76); NEUTROPHIL COUNT 4.9 K/uL (1.8-6.4); NRBC (%) 0.3 /100 WBC (0-0); PLATELET COUNT 178 K/uL (156-360); RBC DIS.WIDTH-CV 18.9 % (11.8-14.6); RED BLOOD COUNT 2.89 M/uL (4.00-5.50); WHITE BLOOD COUNT 7.6 K/uL (4.1-10.2)
[2017-02-01 08:02] LABS: ANION GAP 6 MEQ/L (2-14); CHLORIDE 100 MEQ/L (99-109); GFR ESTIMATE (CALCULATED) 28 mL/min/; POTASSIUM 4.3 MEQ/L (3.7-5.4); SAMPLE HEMOLYSIS CHECK 0; SAMPLE ICTERIC CHECK 0; SAMPLE LIPEMIA CHECK 0; SODIUM 136 MEQ/L (136-147); UREA NITROGEN (BUN) 41 mg/dL (9-23)
[2017-02-01 08:06] LABS: GLUCOSE 84 mg/dL (70-99)
[2017-02-01 11:10] VITALS: BP 92/56
[2017-02-01 15:50] VITALS: BP 96/56
[2017-02-01 18:55] VITALS: BP 107/59
[2017-02-01 21:29] LABS: POINT-OF-CARE METER ID UU13113725
[2017-02-01 22:18] VITALS: BP 96/51
[2017-02-02 02:37] VITALS: BP 93/53
[2017-02-02 05:43] LABS: POINT-OF-CARE METER ID UU13113725
[2017-02-02 07:43] LABS: EOSINOPHIL COUNT 0.1 K/uL (0-0.3); HEMATOCRIT 31.6 % (38.0-50.0); IMMATURE GRANULOCYTE (%) 4.3 % (0.0-0.7); IMMATURE GRANULOCYTE COUNT 0.3 K/uL; INSTRUMENT ABS NEUTROPHIL CT 4.5 K/uL; LYMPHOCYTE COUNT 1.5 K/uL (1.0-2.8); MCHC 29.4 G/DL (30.0-36.0); MCV 101.9 FL (86-99); MEAN PLAT.VOLUME 9.8 uM^3 (9.0-12.4); MONOCYTE (%) 8.1 % (3-12); MONOCYTE COUNT 0.6 K/uL (0-0.8); NEUTROPHIL (%) 64.1 % (45-76); NEUTROPHIL COUNT 4.5 K/uL (1.8-6.4); NRBC (%) 0.3 /100 WBC (0-0); PLATELET COUNT 202 K/uL (156-360); RBC DIS.WIDTH-CV 19.1 % (11.8-14.6); RBC DIS.WIDTH-SD 70.7 % (39-53)
[2017-02-02 08:26] LABS: ANION GAP 7 MEQ/L (2-14); CHLORIDE 99 MEQ/L (99-109); GFR ESTIMATE (CALCULATED) 22 mL/min/; GLUCOSE 100 mg/dL (70-99); IRON 64 MCG/DL (35-150); POTASSIUM 4.9 MEQ/L (3.7-5.4); SAMPLE HEMOLYSIS CHECK 0; SAMPLE ICTERIC CHECK 0; SAMPLE LIPEMIA CHECK 0; SODIUM 136 MEQ/L (136-147); UREA NITROGEN (BUN) 51 mg/dL (9-23)
[2017-02-02 09:06] VITALS: BP 1058/55; BP 108/55
[2017-02-02 17:00] VITALS: BP 85/49
[2017-02-02 19:20] VITALS: BP 88/54
[2017-02-02 20:45] LABS: POINT-OF-CARE METER ID UU13113725
[2017-02-02 23:07] VITALS: BP 82/51
[2017-02-03 03:12] VITALS: BP 83/52
[2017-02-03 06:36] VITALS: BP 101/51
[2017-02-03 07:44] LABS: ANION GAP 7 MEQ/L (2-14); CHLORIDE 100 MEQ/L (99-109); GLUCOSE 80 mg/dL (70-99); SAMPLE HEMOLYSIS CHECK 0; SAMPLE ICTERIC CHECK 0; SAMPLE LIPEMIA CHECK 0; SODIUM 138 MEQ/L (136-147); UREA NITROGEN (BUN) 36 mg/dL (9-23)
[2017-02-03 07:46] LABS: GFR ESTIMATE (CALCULATED) 38 mL/min/; POTASSIUM 3.8 MEQ/L (3.7-5.4)
[2017-02-03 11:38] LABS: POC NON-PRINT COM 1 ND
[2017-02-03 11:47] LABS: POINT-OF-CARE METER ID UU13113725
[2017-02-03 12:20] LABS: POINT-OF-CARE METER ID UU13113725
[2017-02-03 12:27] LABS: POINT-OF-CARE METER ID UU13113725
[2017-02-03 14:59] VITALS: BP 94/51
[2017-02-03 23:08] VITALS: BP 98/54
[2017-02-03 23:17] VITALS: BP 98/54
[2017-02-04 01:42] LABS: POINT-OF-CARE METER ID UU13113725
[2017-02-04 04:07] VITALS: BP 104/57
[2017-02-04 06:49] LABS: EOSINOPHIL (%) 0.9 % (0-5); EOSINOPHIL COUNT 0.1 K/uL (0-0.3); HEMATOCRIT 31.6 % (38.0-50.0); IMMATURE GRANULOCYTE (%) 2.9 % (0.0-0.7); IMMATURE GRANULOCYTE COUNT 0.2 K/uL; INSTRUMENT ABS NEUTROPHIL CT 3.8 K/uL; LYMPHOCYTE COUNT 1.9 K/uL (1.0-2.8); MCH 30.7 PG (29.0-34.0); MCHC 29.4 G/DL (30.0-36.0); MCV 104.3 FL (86-99); MEAN PLAT.VOLUME 9.7 uM^3 (9.0-12.4); MONOCYTE (%) 9.1 % (3-12); MONOCYTE COUNT 0.6 K/uL (0-0.8); NEUTROPHIL (%) 57.9 % (45-76); NEUTROPHIL COUNT 3.8 K/uL (1.8-6.4); PLATELET COUNT 220 K/uL (156-360); RBC DIS.WIDTH-CV 19.8 % (11.8-14.6); RBC DIS.WIDTH-SD 75.1 % (39-53); RED BLOOD COUNT 3.03 M/uL (4.00-5.50); WHITE BLOOD COUNT 6.5 K/uL (4.1-10.2)
[2017-02-04 07:16] LABS: ANION GAP 5 MEQ/L (2-14); CHLORIDE 99 MEQ/L (99-109); GFR ESTIMATE (CALCULATED) 28 mL/min/; POTASSIUM 4.4 MEQ/L (3.7-5.4); SAMPLE HEMOLYSIS CHECK 0; SAMPLE ICTERIC CHECK 0; SAMPLE LIPEMIA CHECK 0; SODIUM 137 MEQ/L (136-147); UREA NITROGEN (BUN) 51 mg/dL (9-23)
[2017-02-04 07:24] LABS: GLUCOSE 102 mg/dL (70-99)
[2017-02-04 08:01] VITALS: BP 114/56
[2017-02-04 15:53] VITALS: BP 120/80
[2017-02-04] MEDS ORDERED: AMOXICILLIN500 MG PO (18:55)
[2017-02-04] MEDS ORDERED: ZINC OXIDE56.7 GM TP (18:57)
[2017-02-04] MEDS ORDERED: EMLA TP (18:57)
[2017-02-04 19:05] VITALS: BP 116/58
[2017-02-04 20:38] LABS: COLOR AMBER ((YELLOW)); LEUKOCYTES MODERATE; NITRITE NEGATIVE; SPECIFIC GRAVITY 1.015 (1.000-1.030)
[2017-02-04 20:39] LABS: ADD MIUA? YES; BILIRUBIN NEGATIVE; BLOOD LARGE; GLUCOSE (STRIP) NEGATIVE; KETONES NEGATIVE; PH, URINE 6.5 (5-8); PROTEIN (STRIP) 300; UROBILINOGEN 0.2 MG/DL (0.2-1.0)
[2017-02-04 20:41] LABS: RED BLOOD CELLS TNTC /HPF (0-5); WHITE BLOOD CELLS TNTC /HPF (0-5)
== END 2017-02-04 21:15 | DRG 689 ==
LOC: EME → EDBD 09:38 → 5EAST 16:44 → EDOF 16:44 → 5EAST 21:06
PROVIDERS: Emergency Medicine; Family Medicine Sports Medicine; Internal Medicine Nephrology
PROC: 5A1D60Z (ICD-10-PCS; principal; 2017-02-02)
DX: N39.0 Urinary tract infection, site not specified (principal); J44.9 Chronic obstructive pulmonary disease, unspecified; J96.11 Chronic respiratory failure with hypoxia; I12.0 Hypertensive chronic kidney disease with stage 5 chronic kidney disease or end stage renal disease; L89.90 Pressure ulcer of unspecified site, unspecified stage; I25.5 Ischemic cardiomyopathy; N18.6 End stage renal disease; Z99.81 Dependence on supplemental oxygen; I50.9 Heart failure, unspecified; E86.0 Dehydration; I48.91 Unspecified atrial fibrillation; E11.22 Type 2 diabetes mellitus with diabetic chronic kidney disease; E78.5 Hyperlipidemia, unspecified; J30.9 Allergic rhinitis, unspecified; E78.00 Pure hypercholesterolemia, unspecified; D63.1 Anemia in chronic kidney disease; R00.0 Tachycardia, unspecified; F32.9 Major depressive disorder, single episode, unspecified; R50.9 Fever, unspecified; C67.9 Malignant neoplasm of bladder, unspecified; I25.10 Atherosclerotic heart disease of native coronary artery without angina pectoris; Z95.5 Presence of coronary angioplasty implant and graft; Z95.1 Presence of aortocoronary bypass graft; Z85.51 Personal history of malignant neoplasm of bladder; Z87.891 Personal history of nicotine dependence; R41.82 Altered mental status, unspecified; Z99.2 Dependence on renal dialysis; Z87.828 Personal history of other (healed) physical injury and trauma; R53.1 Weakness
CPT/HCPCS: 71010; 80048; 80069; 81003; 82272; 82948; 83540; 83605; 84466; 85025; 87040; 87086; 93005; 94640; 94640 76; 94760; 94799; 99202; J0696; J0881; J1644; J1650; J1815; J7040; J7050

== ENCOUNTER 2017-02-18 17:51 | Inpatient (IN) | payer OTHER ==
[~2017-02-18] VITALS: Ht 157.5 cm; Wt 64.0 kg
[~2017-02-18 17:51] MED LIST changes: +AMOXICILLIN500 MG PO; +DULCOLAX10 MG PR; +EMLA TP; +PERCOCET 5/31 TABLET PO; +PROBIOTIC1 EAC2 PO; +TYLENOL ARTHRI650 MG PO; +ZINC OXIDE56.7 GM TP
[2017-02-18 18:56] LABS: HEMATOCRIT 37.7 % (38.0-50.0); MCH 29.9 PG (29.0-34.0); MCHC 28.1 G/DL (30.0-36.0); MCV 106.5 FL (86-99); MEAN PLAT.VOLUME 8.8 uM^3 (9.0-12.4); PLATELET COUNT 244 K/uL (156-360); RBC DIS.WIDTH-CV 19.1 % (11.8-14.6); RBC DIS.WIDTH-SD 76.9 % (39-53); RED BLOOD COUNT 3.54 M/uL (4.00-5.50); WHITE BLOOD COUNT 9.8 K/uL (4.1-10.2)
[2017-02-18 19:05] LABS: CHLORIDE 104 mEq/L (99-109); SODIUM 135 mEq/L (136-147)
[2017-02-18 19:06] LABS: GLUCOSE 79 mg/dL (70-99)
[2017-02-18 19:08] LABS: ANION GAP 8 MEQ/L (2-14)
[2017-02-18 19:13] LABS: GFR ESTIMATE (CALCULATED) > 59 mL/min/; UREA NITROGEN (BUN) 7 mg/dL (9-23)
[2017-02-18 19:14] LABS: TROP-I INTERPRETATION NEGATIVE; TROPONIN-I 0.03 ng/mL (0.0-0.30)
[2017-02-18] MEDS ORDERED: LIDOCAINE-PRIL1 EACH TP (21:38)
[2017-02-18] MEDS ORDERED: MIRTAZAPINE7.5 MG PO (21:40)
[2017-02-18] MEDS ORDERED: ROCEPHIN1000 MG IV (21:41)
[2017-02-18] MEDS ORDERED: SILVADENE20 GM TP (21:41)
[2017-02-18] MEDS ORDERED: PROBIOTIC1 EAC1 PO ×2 (21:43→21:44)
[2017-02-18] MEDS ORDERED: OXYCODONE HCL10 MG PO (21:45)
[2017-02-18] MEDS ORDERED: FLEET MINERAL133 ML PR (21:46)
[2017-02-18] MEDS ORDERED: TYLENOL REGULA325 MG PO (21:47)
[2017-02-19 00:48] VITALS: BP 108/57
[2017-02-19 03:44] VITALS: BP 111/57
[2017-02-19 07:50] LABS: ADD MIUA? YES; BILIRUBIN NEGATIVE; BLOOD MODERATE; GLUCOSE (STRIP) NEGATIVE; KETONES 5; LEUKOCYTES LARGE; NITRITE NEGATIVE; PROTEIN (STRIP) 100; SPECIFIC GRAVITY 1.015 (1.000-1.030); UROBILINOGEN 0.2 MG/DL (0.2-1.0)
[2017-02-19 07:51] VITALS: BP 102/57
[2017-02-19 08:20] LABS: COLOR BROWN ((YELLOW))
[2017-02-19 08:21] LABS: UCUL ADDED? YES; WHITE BLOOD CELLS TNTC /HPF (0-5)
[2017-02-19 08:39] LABS: ANION GAP 7 MEQ/L (2-14); CHLORIDE 106 MEQ/L (99-109); GFR ESTIMATE (CALCULATED) > 59 mL/min/; GLUCOSE 77 mg/dL (70-99); POTASSIUM 4.2 MEQ/L (3.7-5.4); SAMPLE HEMOLYSIS CHECK 0; SAMPLE ICTERIC CHECK 0; SAMPLE LIPEMIA CHECK 0; SODIUM 135 MEQ/L (136-147); UREA NITROGEN (BUN) 13 mg/dL (9-23)
[2017-02-19 11:42] VITALS: BP 115/57
[2017-02-19 16:16] VITALS: BP 98/51
[2017-02-19 19:40] VITALS: BP 105/52
[2017-02-20] VITALS (7 sets, daily range): BP systolic 80–138; BP diastolic 43–78
[2017-02-20 08:43] LABS: HEMATOCRIT 32.9 % (38.0-50.0); MCH 30.5 PG (29.0-34.0); MCHC 28.6 G/DL (30.0-36.0); MCV 106.8 FL (86-99); PLATELET COUNT 264 K/uL (156-360); RBC DIS.WIDTH-CV 19.2 % (11.8-14.6); RBC DIS.WIDTH-SD 75.7 % (39-53); RED BLOOD COUNT 3.08 M/uL (4.00-5.50)
[2017-02-20 08:55] LABS: ANION GAP 4 MEQ/L (2-14); CHLORIDE 106 MEQ/L (99-109); POTASSIUM 4.1 MEQ/L (3.7-5.4); SAMPLE HEMOLYSIS CHECK 0; SAMPLE ICTERIC CHECK 0; SAMPLE LIPEMIA CHECK 0; SODIUM 135 MEQ/L (136-147)
[2017-02-20 09:01] LABS: GFR ESTIMATE (CALCULATED) 38 mL/min/; UREA NITROGEN (BUN) 20 mg/dL (9-23)
[2017-02-20 09:03] LABS: GLUCOSE 99 mg/dL (70-99)
[2017-02-21 04:48] VITALS: BP 135/54
[2017-02-21 06:46] LABS: EOSINOPHIL (%) 1.2 % (0-5); EOSINOPHIL COUNT 0.1 K/uL (0-0.3); HEMATOCRIT 35.4 % (38.0-50.0); IMMATURE GRANULOCYTE (%) 2.2 % (0.0-0.7); IMMATURE GRANULOCYTE COUNT 0.2 K/uL; INSTRUMENT ABS NEUTROPHIL CT 5.8 K/uL; LYMPHOCYTE COUNT 1.9 K/uL (1.0-2.8); MCH 31.1 PG (29.0-34.0); MCHC 28.8 G/DL (30.0-36.0); MCV 107.9 FL (86-99); MEAN PLAT.VOLUME 9.4 uM^3 (9.0-12.4); MONOCYTE (%) 11.5 % (3-12); MONOCYTE COUNT 1.1 K/uL (0-0.8); NEUTROPHIL (%) 64.1 % (45-76); NEUTROPHIL COUNT 5.8 K/uL (1.8-6.4); PLATELET COUNT 232 K/uL (156-360); RBC DIS.WIDTH-CV 19.3 % (11.8-14.6); RED BLOOD COUNT 3.28 M/uL (4.00-5.50); WHITE BLOOD COUNT 9.1 K/uL (4.1-10.2)
[2017-02-21 07:37] VITALS: BP 102/52
[2017-02-21 08:08] LABS: ANION GAP 9 MEQ/L (2-14); CHLORIDE 105 MEQ/L (99-109); POTASSIUM 4.3 MEQ/L (3.7-5.4); SAMPLE HEMOLYSIS CHECK 0; SAMPLE ICTERIC CHECK 0; SAMPLE LIPEMIA CHECK 0; SODIUM 136 MEQ/L (136-147)
[2017-02-21 08:14] LABS: GFR ESTIMATE (CALCULATED) 48 mL/min/; GLUCOSE 77 mg/dL (70-99); UREA NITROGEN (BUN) 14 mg/dL (9-23)
[2017-02-21 11:19] VITALS: BP 107/59
[2017-02-21 15:20] VITALS: BP 105/50
[2017-02-21 19:46] VITALS: BP 130/58
[2017-02-21 23:33] VITALS: BP 123/59
[2017-02-22 04:05] VITALS: BP 144/74
[2017-02-22 07:41] VITALS: BP 123/57
[2017-02-22 11:29] VITALS: BP 105/54
[2017-02-22 15:36] VITALS: BP 94/50
[2017-02-22 19:39] VITALS: BP 100/50
[2017-02-22 23:25] VITALS: BP 128/64
[2017-02-23] VITALS (7 sets, daily range): BP systolic 100–122; BP diastolic 55–65
[2017-02-23 00:12] LABS: POINT-OF-CARE METER ID UU14149397
[2017-02-23 08:26] LABS: HEMATOCRIT 32.5 % (38.0-50.0); MCH 30.8 PG (29.0-34.0); MCHC 29.5 G/DL (30.0-36.0); MCV 104.2 FL (86-99); MEAN PLAT.VOLUME 9.1 uM^3 (9.0-12.4); PLATELET COUNT 278 K/uL (156-360); RBC DIS.WIDTH-CV 19.2 % (11.8-14.6); RBC DIS.WIDTH-SD 74.3 % (39-53); RED BLOOD COUNT 3.12 M/uL (4.00-5.50); WHITE BLOOD COUNT 10.6 K/uL (4.1-10.2)
[2017-02-23 08:45] LABS: ANION GAP 6 MEQ/L (2-14); CHLORIDE 106 MEQ/L (99-109); GFR ESTIMATE (CALCULATED) 25 mL/min/; GLUCOSE 87 mg/dL (70-99); POTASSIUM 4.3 MEQ/L (3.7-5.4); SAMPLE HEMOLYSIS CHECK 0; SAMPLE ICTERIC CHECK 0; SAMPLE LIPEMIA CHECK 0; SODIUM 134 MEQ/L (136-147); UREA NITROGEN (BUN) 29 mg/dL (9-23)
[2017-02-24 03:33] VITALS: BP 111/56
[2017-02-24 07:28] LABS: ANION GAP 8 MEQ/L (2-14); CHLORIDE 103 MEQ/L (99-109); GLUCOSE 75 mg/dL (70-99); POTASSIUM 4.3 MEQ/L (3.7-5.4); SAMPLE HEMOLYSIS CHECK 0; SAMPLE ICTERIC CHECK 0; SAMPLE LIPEMIA CHECK 0; SODIUM 136 MEQ/L (136-147); UREA NITROGEN (BUN) 18 mg/dL (9-23)
[2017-02-24 07:34] LABS: GFR ESTIMATE (CALCULATED) 34 mL/min/
[2017-02-24 08:11] VITALS: BP 100/59
[2017-02-24 11:09] VITALS: BP 106/56
[2017-02-24 19:38] VITALS: BP 92/47
[2017-02-25 00:20] VITALS: BP 103/56
[2017-02-25 03:40] VITALS: BP 112/62
[2017-02-25 06:55] LABS: ANION GAP 8 MEQ/L (2-14); CHLORIDE 103 MEQ/L (99-109); GFR ESTIMATE (CALCULATED) 24 mL/min/; POTASSIUM 4.3 MEQ/L (3.7-5.4); SAMPLE HEMOLYSIS CHECK 0; SAMPLE ICTERIC CHECK 0; SAMPLE LIPEMIA CHECK 0; SODIUM 136 MEQ/L (136-147); UREA NITROGEN (BUN) 24 mg/dL (9-23)
[2017-02-25 07:13] LABS: GLUCOSE 112 mg/dL (70-99)
[2017-02-25 07:41] VITALS: BP 100/54
[2017-02-25 11:32] VITALS: BP 131/58
[2017-02-25 13:05] LABS: EOSINOPHIL (%) 0.1 % (0-5); HEMATOCRIT 33.6 % (38.0-50.0); IMMATURE GRANULOCYTE (%) 2.1 % (0.0-0.7); IMMATURE GRANULOCYTE COUNT 0.2 K/uL; INSTRUMENT ABS NEUTROPHIL CT 6.7 K/uL; LYMPHOCYTE COUNT 1.5 K/uL (1.0-2.8); MCH 30.1 PG (29.0-34.0); MCHC 28.9 G/DL (30.0-36.0); MCV 104.3 FL (86-99); MEAN PLAT.VOLUME 9.3 uM^3 (9.0-12.4); MONOCYTE (%) 8.9 % (3-12); MONOCYTE COUNT 0.8 K/uL (0-0.8); NEUTROPHIL (%) 72.7 % (45-76); NEUTROPHIL COUNT 6.7 K/uL (1.8-6.4); PLATELET COUNT 287 K/uL (156-360); RBC DIS.WIDTH-SD 74.7 % (39-53); RED BLOOD COUNT 3.22 M/uL (4.00-5.50); WHITE BLOOD COUNT 9.1 K/uL (4.1-10.2)
[2017-02-25 15:02] VITALS: BP 112/60
[2017-02-25 19:13] VITALS: BP 146/63
[2017-02-26 00:08] VITALS: BP 120/74
[2017-02-26 04:44] VITALS: BP 133/62
[2017-02-26 07:19] LABS: ANION GAP 12 MEQ/L (2-14); CHLORIDE 104 MEQ/L (99-109); GFR ESTIMATE (CALCULATED) 32 mL/min/; GLUCOSE 91 mg/dL (70-99); POTASSIUM 4.3 MEQ/L (3.7-5.4); SAMPLE HEMOLYSIS CHECK 0; SAMPLE ICTERIC CHECK 0; SAMPLE LIPEMIA CHECK 0; SODIUM 137 MEQ/L (136-147); UREA NITROGEN (BUN) 17 mg/dL (9-23)
[2017-02-26 08:00] VITALS: BP 114/64
[2017-02-26 11:56] VITALS: BP 120/74
[2017-02-26 16:31] VITALS: BP 113/53
== END 2017-02-26 17:55 | DRG 190 ==
LOC: EME 17:51 → EDOF 21:43 → 3EAST 21:43
PROVIDERS: Emergency Medicine; Family Medicine Sports Medicine; Internal Medicine Nephrology
DX: J44.0 Chronic obstructive pulmonary disease with (acute) lower respiratory infection (principal); J96.21 Acute and chronic respiratory failure with hypoxia; L89.154 Pressure ulcer of sacral region, stage 4; J18.9 Pneumonia, unspecified organism; I12.0 Hypertensive chronic kidney disease with stage 5 chronic kidney disease or end stage renal disease; N18.6 End stage renal disease; F03.90 Unspecified dementia, unspecified severity, without behavioral disturbance, psychotic disturbance, mood disturbance, and anxiety; I95.89 Other hypotension; I48.92 Unspecified atrial flutter; L89.213 Pressure ulcer of right hip, stage 3; N39.0 Urinary tract infection, site not specified; E11.9 Type 2 diabetes mellitus without complications; I25.5 Ischemic cardiomyopathy; C67.9 Malignant neoplasm of bladder, unspecified; D63.1 Anemia in chronic kidney disease; E11.22 Type 2 diabetes mellitus with diabetic chronic kidney disease; E78.5 Hyperlipidemia, unspecified; I12.9 Hypertensive chronic kidney disease with stage 1 through stage 4 chronic kidney disease, or unspecified chronic kidney disease; Z99.81 Dependence on supplemental oxygen; I25.10 Atherosclerotic heart disease of native coronary artery without angina pectoris; I48.0 Paroxysmal atrial fibrillation; Z74.01 Bed confinement status; J98.11 Atelectasis; K21.9 Gastro-esophageal reflux disease without esophagitis; M19.90 Unspecified osteoarthritis, unspecified site; M81.0 Age-related osteoporosis without current pathological fracture; E21.3 Hyperparathyroidism, unspecified; N40.0 Benign prostatic hyperplasia without lower urinary tract symptoms; R13.10 Dysphagia, unspecified; Y95 Nosocomial condition; Z87.891 Personal history of nicotine dependence; Z83.3 Family history of diabetes mellitus; Z82.49 Family history of ischemic heart disease and other diseases of the circulatory system; Z85.51 Personal history of malignant neoplasm of bladder; Z86.19 Personal history of other infectious and parasitic diseases; Z87.440 Personal history of urinary (tract) infections; Z95.1 Presence of aortocoronary bypass graft; Z99.2 Dependence on renal dialysis; E53.8 Deficiency of other specified B group vitamins; F41.9 Anxiety disorder, unspecified; E11.42 Type 2 diabetes mellitus with diabetic polyneuropathy; G83.9 Paralytic syndrome, unspecified; J30.9 Allergic rhinitis, unspecified; M62.81 Muscle weakness (generalized); R00.0 Tachycardia, unspecified; R41.82 Altered mental status, unspecified; B95.2 Enterococcus as the cause of diseases classified elsewhere; Z16.21 Resistance to vancomycin; T14.90 Injury, unspecified; W19.XXXS Unspecified fall, sequela; L89.520 Pressure ulcer of left ankle, unstageable; L89.810 Pressure ulcer of head, unstageable; L89.890 Pressure ulcer of other site, unstageable; L89.621 Pressure ulcer of left heel, stage 1; L89.891 Pressure ulcer of other site, stage 1; M48.02 Spinal stenosis, cervical region; Z66 Do not resuscitate
CPT/HCPCS: 71010; 74230; 80048; 80069; 80202; 81003; 82948; 83605; 84484; 85025; 85027; 87040; 87070; 87077; 87086; 87186; 87205; 92526 GN; 92611 GN; 93005; 94640; 94640 76; 94760; 94799; 99202; 99281; 99285; A6260; J0692; J1644; J3370; J7030; J7050